=== PATIENT | male | born 1960 | race Caucasian/White ===

== ENCOUNTER 2023-11-08 17:32 | Inpatient (IN) ==
--- NOTE | 2023-11-08 17:55 | Emergency Department Note ---
History of Present Illness General Chief complaint: Cardiac Assessment Stated complaint: HEART PALPATATIONS, HYPERTENSION, WEAKNESS IN ARMS Time Seen by Provider: 11/08/23 17:39 Source: patient, family ( who is at the bedside), RN notes reviewed and old records reviewed (08/30/22-outpatient visit for back pain) Mode of arrival: ambulatory Limitations: no limitations History of Present Illness Maximum Pain Intensity: 8 This patient 62-year-old male who comes in with heart palpitations that have been going on since yesterday or so. He says it feels like there is butterflies in his chest his arms were very weak bilaterally yesterday and he felt a little bit today 2 weeks that when he was lifting stuff at work he said in the last 1 to 2 months he has episodes where his arms feel very weak. No syncope or near syncope. no chest pain or shortness of breath . no blood or melena stool. no fever .no abdominal pain. no headache .no change in vision he has had some nausea with this yesterday but no vomiting. He has chronic leg pain. Home Medications Medication Instructions Recorded Confirmed Type aspirin 81 mg tablet,delayed 81 mg PO DAILY 08/30/22 11/08/23 History release atenolol 50 mg tablet 50 mg PO DAILY 08/30/22 11/08/23 History insulin glargine 100 unit/mL (3 50 unit subcut HS 08/30/22 11/08/23 History mL) subcutaneous pen (Lantus Solostar U-100 Insulin) duloxetine 30 mg capsule,delayed 30 mg PO DAILY 11/08/23 11/08/23 History release empagliflozin 25 mg tablet 25 mg PO DAILY 11/08/23 11/08/23 History (Jardiance) fenofibrate micronized 200 mg 200 mg PO DAILYBB 11/08/23 11/08/23 History capsule gabapentin 300 mg capsule 300 mg PO TID 11/08/23 11/08/23 History glipizide 10 mg tablet, extended 10 mg PO DAILYBB 11/08/23 11/08/23 History release 24 hr lisinopril 40 mg tablet 40 mg PO DAILY 11/08/23 11/08/23 History meloxicam 15 mg tablet 15 mg PO DAILY PRN Pain 11/08/23 11/08/23 History metformin 500 mg tablet,extended 500 mg PO DAILY 11/08/23 11/08/23 History release 24 hr Allergies Allergy/AdvReac Type Severity Reaction Status Date / Time semaglutide [From Ozempic] AdvReac Intermediate ABD Verified 11/08/23 17:50 PAIN/NAUSEA Past Med/Surg History Problem List (Updated 11/08/23 @ 22:19 by Naeem Sung MD) D-dimer, elevated (Acute) Frequent PVCs (Acute) Palpitations (Acute) Arrhythmia (Acute) Hypertensive urgency Prostate cancer (Acute 08/08/14) "Positive family history of prostate cancer Rising PSA pretreatment PSA 4.39 Status post ultrasound-guided biopsies 08/08/2014 revealing adenocarcinoma [place] 3+3, biopsy staged T2c Prostate volume 29.6 Prostate density 0.148" Social History Smoking Status: Current every day smoker Tobacco Type: Smokeless Tobacco (Dip or Chew) Feels Safe at Home: Yes Immunizations: Past medical he he is a diabetic and his A1c was 10.5 last he tells Review of Systems A total of 10 systems reviewed and were otherwise negative Physical Exam Vital Signs Vital Signs - 24 hr 11/08/23 17:34 11/08/23 17:45 11/08/23 17:56 Temperature 36.9 C Temperature Source Temporal Artery Scan Pulse Rate 71 74 67 Pulse Rate from SpO2 Sensor Pulse Rhythm Regular Pulse Strength Normal Respiratory Rate 20 18 Respiratory Effort / Characteristics Non-Labored Spontaneous Respiratory Depth Normal Blood Pressure 170/90 H Blood Pressure Mean 116 Pulse Oximetry 95 Oxygen Delivery Method Room Air Sepsis Recent Fever Within 48 Hours No Sepsis New/Unexplained Change in Mental Status N/A Sepsis Action Taken by Nursing No Action Required 11/08/23 18:09 11/08/23 18:30 11/08/23 18:30 Temperature Temperature Source Pulse Rate 65 Pulse Rate from SpO2 Sensor Pulse Rhythm Pulse Strength Respiratory Rate 16 Respiratory Effort / Characteristics Respiratory Depth Blood Pressure 143/82 H 143/82 H Blood Pressure Mean 120 120 Pulse Oximetry Oxygen Delivery Method Sepsis Recent Fever Within 48 Hours Sepsis New/Unexplained Change in Mental Status Sepsis Action Taken by Nursing 11/08/23 18:30 11/08/23 18:30 11/08/23 18:33 Temperature Temperature Source Pulse Rate 65 Pulse Rate from SpO2 Sensor Pulse Rhythm Pulse Strength Respiratory Rate 16 Respiratory Effort / Characteristics Respiratory Depth Blood Pressure 143/82 H 143/82 H Blood Pressure Mean 120 120 Pulse Oximetry Oxygen Delivery Method Sepsis Recent Fever Within 48 Hours Sepsis New/Unexplained Change in Mental Status Sepsis Action Taken by Nursing 11/08/23 19:03 11/08/23 19:33 11/08/23 20:00 Temperature Temperature Source Pulse Rate 57 L 74 Pulse Rate from SpO2 Sensor 85 72 Pulse Rhythm Pulse Strength Respiratory Rate 25 H 25 H Respiratory Effort / Characteristics Respiratory Depth Blood Pressure Blood Pressure Mean Pulse Oximetry 96 96 Oxygen Delivery Method Sepsis Recent Fever Within 48 Hours Sepsis New/Unexplained Change in Mental Status Sepsis Action Taken by Nursing 11/08/23 20:21 11/08/23 20:25 11/08/23 20:25 Temperature Temperature Source Pulse Rate 78 Pulse Rate from SpO2 Sensor 79 Pulse Rhythm Pulse Strength Respiratory Rate 28 H Respiratory Effort / Characteristics Respiratory Depth Blood Pressure 163/95 H 163/95 H Blood Pressure Mean 138 138 Pulse Oximetry 95 Oxygen Delivery Method Sepsis Recent Fever Within 48 Hours Sepsis New/Unexplained Change in Mental Status Sepsis Action Taken by Nursing 11/08/23 22:12 Temperature Temperature Source Pulse Rate 77 Pulse Rate from SpO2 Sensor Pulse Rhythm Pulse Strength Respiratory Rate Respiratory Effort / Characteristics Respiratory Depth Blood Pressure Blood Pressure Mean Pulse Oximetry Oxygen Delivery Method Sepsis Recent Fever Within 48 Hours Sepsis New/Unexplained Change in Mental Status Sepsis Action Taken by Nursing General: Well developed well nourished middle-age male who appears in no acute distress, breathing comfortably on room air. Normal speech HEENT: Normal cephalic atraumatic. Pupils are equal round and reactive to light. Extraocular movements are intact. Oropharynx is pink with moist mucous membranes. No swelling of the mouth lips or tongue. Neck: Supple with a midline trachea. No meningeal signs or stiffness, no JVD or bruits. No Stridor. Chest: Clear to auscultation bilaterally. No wheezes or rhonchi. No increased work of breathing. Heart: Regular rate and rhythm with occasional PVCs but without murmurs or gallops. Abdomen: Soft nontender, nondistended without rebound guarding or rigidity. Extremities: No cyanosis clubbing or edema. No calf tenderness or assymetry Spine/Back. Non tender to palpation. No CVA tenderness Skin: Good turgor without rashes. Neurologic exam: Cranial nerves two through 12 are intact. Motor and sensation are intact and symmetrical throughout. Course Administered Medications Discontinued Medications Sodium Chloride (Nss) 1,000 mls @ 999 mls/hr IV .Q1H1M ONE Stop: 11/08/23 18:50 Last Infusion: 11/08/23 20:23 Dose: Infused Documented By: Admin: 11/08/23 18:30 Dose: 999 mls/hr Documented By: INDRA Ioversol (Optiray 320 125ml) 117 ml IV ONCE ONE Stop: 11/08/23 19:27 Last Admin: 11/08/23 19:27 Dose: 117 ml Documented By: JAKY Medical Decision Making Differential Diagnosis Acute coronary syndrome, arrhythmia, electrolyte or metabolic abnormality, PVCs, pulmonary disease/PE, thyroid disease, dehydration Medical Records Attestation: I reviewed the patient's medical records. Home Medications Current Medication List: was personally reviewed by me Laboratory Data Attestation: I reviewed the patient's lab results. 11/08/23 17:49 11/08/23 17:49 Lab Results 11/08/23 11/08/23 11/08/23 Range/Units 17:49 17:51 21:10 WBC 9.30 (4.8-10.8) K/ul RBC 6.10 (4.70-6.10) M/uL Hgb 18.1 H (14.0-18.0) g/dl POC Hgb 18.4 H (14.0-18.0) g/dl Hct 52.7 H (42.0-52.0) % POC Hct 54 H (42-52) % MCV 86.4 (80.0-100.0) fL MCH 29.7 (25.0-34.0) pg MCHC 34.3 (32.0-36.0) g/dL RDW Std Deviation 40.0 (36.4-46.3) fL RDW Coeff of Danna 12.9 (11.5-14.5) % Plt Count 262 (130-400) K/uL MPV 9.9 (9.4-12.4) fL Immature Gran % (Auto) 0.6 % Neut % (Auto) 66.1 % Lymph % (Auto) 23.3 % Waldo % (Auto) 6.2 % Eos % (Auto) 3.0 % Baso % (Auto) 0.8 % Neut # (Auto) 6.14 (1.40-6.50) K/uL Lymph # (Auto) 2.17 (1.20-3.40) K/uL Waldo # (Auto) 0.58 (0.11-0.59) K/uL Eos # (Auto) 0.28 (0.00-0.50) K/uL Baso # (Auto) 0.07 (0.00-0.20) K/uL Immature Gran # (Auto) 0.06 (0.01-0.20) K/uL PT 10.3 (9.0-12.0) Seconds INR 0.9 (0.9-1.1) APTT 27 (21-31) Seconds PTT Ratio 1.0 D-Dimer 590 H* (0-500) ug/L FEU POC Sodium 140 (135-144) mmol/L Sodium 138 (136-145) mmol/L POC Potassium 4.1 (3.3-5.0) mmol/L Potassium 4.0 (3.5-5.1) mmol/L POC Chloride 106 (101-112) mmol/L Chloride 105 (98-107) mmol/L Carbon Dioxide 23 (21-32) mmol/L POC Total CO2 23 L (24-31) mmol/L Anion Gap 10 (3-11) POC Anion Gap 16.0 (16-25) mmol/L POC BUN 23 H (7-18) mg/dl BUN 23 (6-23) mg/dl Creatinine 1.04 (0.6-1.4) mg/dl POC Creatinine 1.1 (0.6-1.3) mg/dl Est Cr Clr Drug Dosing 72.2 ml/min Est GFR ( Amer) 89.4 ml/min Est GFR (Non-Af Amer) 77.1 ml/min BUN/Creatinine Ratio 22.1 H (10-20) Glucose 131 H (70-99(Fasting)) mg/dl POC Glucose (other) 131 H (70-99) mg/dl Calcium 10.3 (8.6-10.3) mg/dl POC Ioniz Calcium Gurmeet 1.19 (1.12-1.32) mmol/l Magnesium 2.3 (1.7-2.4) mg/dl Total Bilirubin 0.5 (0.2-1.0) mg/dl AST 19 (13-39) U/L ALT 17 (7-52) U/L Alkaline Phosphatase 42 (34-104) U/L Troponin I High Sens 6.5 4.8 (0-20) pg/ml Total Protein 7.8 (6.0-8.3) gm/dl Albumin 4.9 (3.4-5.0) gm/dl Globulin 2.9 (2.5-4.0) gm/dl Albumin/Globulin Ratio 1.7 (0.9-2) Lipase 106 H (11-82) U/L TSH 1.542 (0.300-4.500) uIu/ml Lyme Disease Screen Negative (Negative) Imaging Data Attestation: I personally reviewed and interpreted this imaging study as follows: My Impression: Chest x-rayno acute infiltrate, failure, pneumothorax seen Radiologist's Impression: Chest X-Ray 11/08/23 17:50 SINGLE VIEW CHEST CLINICAL HISTORY: Atypical chest pain FINDINGS: An AP, portable, upright chest radiograph is compared to study dated 09/30/2014. The heart is mildly enlarged noting atherosclerotic calcification of the thoracic aorta. The pulmonary vasculature is noncongested. Nonspecific interstitial thickening is likely chronic. The lungs and pleural spaces are clear. No pneumothorax is seen. The skeletal structures appear osteopenic. The bony thorax is grossly intact. IMPRESSION: No acute cardiopulmonary abnormality is identified. ACT 112: Negative or not required by law. Electronically signed by: Irving Eid M.D. 11/08/2023 6:40 PM Chest CTA 11/08/23 18:54 Exam(s): CTA CHEST IV Amt: 117 ml optiray 320 EXAM: CT Angiography Chest With Intravenous Contrast CLINICAL HISTORY: Reason for exam: PE. TECHNIQUE: Axial computed tomographic angiography images of the chest with intravenous contrast. CTDI is 32 mGy and DLP is 723.58 mGy-cm. Automated exposure control was utilized for the study. A dose lowering technique was utilized adhering to the principles of ALARA. MIP reconstructed images were created and reviewed. COMPARISON: No relevant prior studies available. FINDINGS: Pulmonary arteries: Unremarkable. No pulmonary embolism. Aorta: No acute findings. No thoracic aortic aneurysm. Lungs: Unremarkable. No mass. No consolidation. Pleural space: Unremarkable. No significant effusion. No pneumothorax. Heart: Unremarkable. No cardiomegaly. No significant pericardial effusion. No evidence of RV dysfunction. Bones/joints: No acute fracture. No dislocation. Soft tissues: Unremarkable. Lymph nodes: Unremarkable. No enlarged lymph nodes. IMPRESSION: Normal chest CTA. No pulmonary embolism. Electronically signed by: Jordan Johnson MD 11/08/23 20:28 PM ECG Data Attestation: I personally reviewed and interpreted this ECG as follows: Indication: + chest pain Rate (beats per minute): 65 Rhythm: + normal sinus ECG Intervals/blocks: + Normal QRS, + Normal QT and + Normal [place] ECG [place]: + Normal ECG ST segments: + Normal ST segments ECG Findings: no PACs or no PVCs Comparison ECG Date: from (10/15/17) Change: no significant change MDM Narrative This patient comes in as described above he has been having palpitations. He looks well at present he is in no chest pain. He was placed on a laboratory monitor and room B8. IV access was established and he was hydrated with IV normal saline his EKG shows no ischemic changes or ectopy. Multiple blood testing was obtained. He remained stable his electrolytes. Troponin was negative. TSH was normal. Lyme was negative. Chest x-ray shows no acute infiltrate, failure, pneumothorax. His D-dimer was mildly elevated in light of this I did do a chest CT angiography. There is no evidence of PE. I did review the patient's monitor strips and he did have an episode where he has had a change in the morphology of his rhythm. He does have fairly frequent PVCs and he had an episode where he had a slow wide complex for 6 beats whether it was consecutive PVCs or junctional escape rhythm is hard to tell there is some artifact. I do think he needs to be admitted based on this for further treatment and evaluation and cardiac monitoring. I have discussed case in consultation with Dr. Morrissey who who will see the patient in the ER for these measures. Continuous cardiac monitoring: Order was placed in the EMR for continuous cardiac monitoring: Upon my evaluation patient noted to be normal sinus rhythm with occasional PVCs. Impression & Plan Arrhythmia, Palpitations, Frequent PVCs, D-dimer, elevated Discharge Plan Visit Data Chief Complaint: Cardiac Assessment Stated Complaint: HEART PALPATATIONS, HYPERTENSION, WEAKNESS IN ARMS ED Provider: Naeem Sung Discharge Problem: Arrhythmia, Palpitations, Frequent PVCs, D-dimer, elevated Forms Stand Alone Forms: My [facility] Prescriptions Prescriptions: No Action atenolol 50 mg tablet 50 mg PO DAILY insulin glargine [Lantus Solostar U-100 Insulin] 100 unit/mL (3 mL) insulin pen 50 unit subcut HS aspirin 81 mg tablet,delayed release (DR/EC) 81 mg PO DAILY glipizide 10 mg tablet extended release 24hr 10 mg PO DAILYBB meloxicam 15 mg tablet 15 mg PO DAILY PRN (Reason: Pain) fenofibrate micronized 200 mg capsule 200 mg PO DAILYBB gabapentin 300 mg capsule 300 mg PO TID lisinopril 40 mg tablet 40 mg PO DAILY metformin 500 mg tablet extended release 24 hr 500 mg PO DAILY duloxetine 30 mg capsule,delayed release(DR/EC) 30 mg PO DAILY Rx Instructions: DO NOT CUT, CRUSH, OR CHEW Jardiance 25 mg tablet 25 mg PO DAILY Referrals Referrals: Katherine Love DO [Primary Care Provider] - Discharge Problem: Arrhythmia Qualifiers: Arrhythmia type: unspecified cardiac arrhythmia Qualified Code(s): I49.9 - Cardiac arrhythmia, unspecified
[2023-11-08 18:02] LABS: Basophils # (auto) 0.07 K/uL (0.00-0.20); Basophils % (auto) 0.8 %; Eosinophils # (auto) 0.28 K/uL (0.00-0.50); Hematocrit (blood only) 52.7 % (42.0-52.0); Hemoglobin 18.1 g/dl (14.0-18.0); Immature Granulocytes # (auto) 0.06 K/uL (0.01-0.20); Immature Granulocytes % (auto) 0.6 %; Lymphocytes # (auto) 2.17 K/uL (1.20-3.40); Lymphocytes % (auto) 23.3 %; Mean Corpuscular Hemoglobin 29.7 pg (25.0-34.0); Mean Corpuscular Hgb Conc 34.3 g/dL (32.0-36.0); Mean Corpuscular Volume 86.4 fL (80.0-100.0); Mean Platelet Volume 9.9 fL (9.4-12.4); Monocytes # (auto) 0.58 K/uL (0.11-0.59); Monocytes % (auto) 6.2 %; Neutrophils # (auto) 6.14 K/uL (1.40-6.50); Neutrophils % (auto) 66.1 %; Platelet Count 262 K/uL (130-400); RDW Coefficient of Variation 12.9 % (11.5-14.5)
[2023-11-08 18:04] LABS: iSTAT Creatinine 1.1 mg/dl (0.6-1.3); iSTAT Hemoglobin 18.4 g/dl (14.0-18.0); iSTAT Ionized Calcium 1.19 mmol/l (1.12-1.32); iSTAT Potassium 4.1 mmol/L (3.3-5.0)
[2023-11-08 18:24] LABS: Albumin Globulin Ratio 1.7 (0.9-2); Albumin Level 4.9 gm/dl (3.4-5.0); BUN Creatinine Ratio 22.1 (10-20); Bilirubin,Total 0.5 mg/dl (0.2-1.0); Calcium 10.3 mg/dl (8.6-10.3); Creatinine Clr Calc Pharmacy 72.2 ml/min; Est GFR (African American) 89.4 ml/min; Est GFR (Non-African American) 77.1 ml/min; Globulin 2.9 gm/dl (2.5-4.0); Magnesium 2.3 mg/dl (1.7-2.4); Total Protein 7.8 gm/dl (6.0-8.3)
[2023-11-08 18:30] LABS: Troponin I High Sensitivity 6.5 pg/ml (0-20)
[2023-11-08] MEDS: SODIUM CHLORIDE 0.9% 1,000 ML IV ONE (18:30)
[2023-11-08 18:33] LABS: INR 0.9 (0.9-1.1); Partial Thromboplastin Time 27 Seconds (21-31); Prothrombin Time 10.3 Seconds (9.0-12.0)
[2023-11-08 18:39] LABS: Thyroid Stimulating Hormone 1.542 uIu/ml (0.300-4.500)
--- NOTE | 2023-11-08 18:41 | XRay Report ---
SINGLE VIEW CHEST CLINICAL HISTORY: Atypical chest pain FINDINGS: An AP, portable, upright chest radiograph is compared to study dated 09/30/2014. The heart i s mildly enlarged noting atherosclerotic calcification of the thoracic aorta. The pulmonary vasculatu re is noncongested. Nonspecific interstitial thickening is likely chronic. The lungs and pleural spac es are clear. No pneumothorax is seen. The skeletal structures appear osteopenic. The bony thorax is grossly intact. IMPRESSION: No acute cardiopulmonary abnormality is identified. ACT 112: Negative or not required by law. Electronically signed by: Irving Eid M.D. 11/08/2023 6:40 PM
[2023-11-08 18:48] LABS: D Dimer 590 ug/L FEU (0-500)
[2023-11-08] MEDS: OPTIRAY 320 125ml IV ONE (19:27)
--- NOTE | 2023-11-08 20:29 | CT Scan Report ---
Exam(s): CTA CHEST IV Amt: 117 ml optiray 320 EXAM: CT Angiography Chest With Intravenous Contrast CLINICAL HISTORY: Reason for exam: PE. TECHNIQUE: Axial computed tomographic angiography images of the chest with intravenous contrast. CTDI is 32 mGy and DLP is 723.58 mGy-cm. Automated exposure control was utilized for the study. A dose lowering technique was utilized adhering to the principles of ALARA. MIP reconstructed images were created and reviewed. COMPARISON: No relevant prior studies available. FINDINGS: Pulmonary arteries: Unremarkable. No pulmonary embolism. Aorta: No acute findings. No thoracic aortic aneurysm. Lungs: Unremarkable. No mass. No consolidation. Pleural space: Unremarkable. No significant effusion. No pneumothorax. Heart: Unremarkable. No cardiomegaly. No significant pericardial effusion. No evidence of RV dysfunction. Bones/joints: No acute fracture. No dislocation. Soft tissues: Unremarkable. Lymph nodes: Unremarkable. No enlarged lymph nodes. IMPRESSION: Normal chest CTA. No pulmonary embolism. Electronically signed by: Jordan Johnson MD 11/08/23 20:28 PM
--- NOTE | 2023-11-08 22:08 | History & Physical Report ---
Date of Service November 08, 2023 Assessment & Plan (1) Hypertensive urgency: Plan: 62-year-old male with past medical history significant for uncontrolled diabetes, diabetic retinopathy, hyperlipidemia, hypertension, gastroparesis, history of tobacco use, depression with anxious mood, history of prostate cancer presents with palpitations and hypertensive urgency. Since yesterday he noticed having palpitations and also his blood pressure is running high. His blood pressure was in 170s. Denies headache. No dizziness. Vision is okay. No sore throat or cough. No fevers. No chest pain or shortness of breath. Had some nausea yesterday. No abdominal pain. Normal bowel and bladder movements. Resting comfortably. Patient had a brief run of wide-complex rhythm in the ER. Hypertensive urgency Will continue home atenolol and lisinopril IV labetalol as needed Will monitor Palpitations Brief run of wide-complex rhythm in the ER Monitoring telemetry On atenolol Cardiology consulted Diabetes Hold metformin and Jardiance Reducing Lantus as patient is n.p.o. currently If started on diet will give him full dose Lantus 50 units at bedtime Sliding scale Will follow HbA1c levels Will follow blood sugars Hyperlipidemia Fenofibrate Depression with anxious mood Duloxetine History of prostate cancer Status post radical prostate removal in 2014 DVT prophylaxis SCDs Disposition Telemetry Full code. History of Present Illness Chief Complaint: Palpitations and hypertensive urgency Primary Care Provider: Katherine Love DO 62-year-old male with past medical history significant for uncontrolled diabetes, diabetic retinopathy, hyperlipidemia, hypertension, gastroparesis, history of tobacco use, depression with anxious mood, history of prostate cancer presents with palpitations and hypertensive urgency. Since yesterday he noticed having palpitations and also his blood pressure is running high. His blood pressure was in 170s. Denies headache. No dizziness. Vision is okay. No sore throat or cough. No fevers. No chest pain or shortness of breath. Had some nausea yesterday. No abdominal pain. Normal bowel and bladder movements. Resting comfortably. Patient had a brief run of wide-complex rhythm in the ER. Past medical history. As mentioned above Past surgical history. Colonoscopy. EGD. Radical prostate removal. Social history. . Quit smoking in 2007. Smoked 1 pack a day for 35 years. Alcohol use. Smokes marijuana as per [employer]. Family history. Father had alcoholism. Father had prostate cancer. Mother had lung cancer. Diabetes. Heart disorder. Thyroid disorder. Brother had Crohn's disease. Brother had diabetes. Allergies Allergy/AdvReac Type Severity Reaction Status Date / Time semaglutide [From Ozempic] AdvReac Intermediate ABD Verified 11/08/23 17:50 PAIN/NAUSEA Home Medications Medication Instructions Recorded Confirmed Type aspirin 81 mg tablet,delayed 81 mg PO DAILY 08/30/22 11/08/23 History release atenolol 50 mg tablet 50 mg PO DAILY 08/30/22 11/08/23 History insulin glargine 100 unit/mL (3 50 unit subcut HS 08/30/22 11/08/23 History mL) subcutaneous pen (Lantus Solostar U-100 Insulin) duloxetine 30 mg capsule,delayed 30 mg PO DAILY 11/08/23 11/08/23 History release empagliflozin 25 mg tablet 25 mg PO DAILY 11/08/23 11/08/23 History (Jardiance) fenofibrate micronized 200 mg 200 mg PO DAILYBB 11/08/23 11/08/23 History capsule gabapentin 300 mg capsule 300 mg PO TID 11/08/23 11/08/23 History glipizide 10 mg tablet, extended 10 mg PO DAILYBB 11/08/23 11/08/23 History release 24 hr lisinopril 40 mg tablet 40 mg PO DAILY 11/08/23 11/08/23 History meloxicam 15 mg tablet 15 mg PO DAILY PRN Pain 11/08/23 11/08/23 History metformin 500 mg tablet,extended 500 mg PO DAILY 11/08/23 11/08/23 History release 24 hr Past Med/Surg History Problem List (Updated 11/08/23 @ 22:19 by Naeem Sung MD) D-dimer, elevated (Acute) Frequent PVCs (Acute) Palpitations (Acute) Arrhythmia (Acute) Hypertensive urgency Prostate cancer (Acute 08/08/14) "Positive family history of prostate cancer Rising PSA pretreatment PSA 4.39 Status post ultrasound-guided biopsies 08/08/2014 revealing adenocarcinoma [place] 3+3, biopsy staged T2c Prostate volume 29.6 Prostate density 0.148" Social History Smoking Status: Current every day smoker Tobacco Type: Cigarettes Cigarettes Per Day: 5; Second Hand Exposure: Yes; Do You Dip or Chew Tobacco: Yes; Tobacco Cessation Education Requested by Patient: No Hx Alcohol Use: No Hx Substance Use: Yes Last Used Substance: Days (ago) Last Used Substance Other:: 5 days Substance Use Type Other:: every 3 days Preferred Language: Afghan Communication Ability: Effective Student Finance Advisor Required: No Beliefs That Will Affect Care: None Current Living Situation: Spouse Other Information That Helps Us Care for You: No Feels Safe at Home: Yes Safety Concerns: Feels Safe At This Time Assistive Devices: Glasses Review of Systems Review of Systems: All systems reviewed & are unremarkable except as noted in HPI & below Physical Exam Physical Exam: General- Not in distress Head- atraumatic Eyes- PERRL. ENT- oropharynx clear Neck- supple, no JVD. Lungs- clear to auscultation no wheezing or crackles Heart- regular rhythm; no murmur, no gallop. Abdomen- normal bowel sounds, soft, nontender, no distension. Extremities- no pretibial edema, no erythema seen Neuro- alert, oriented PERRL, o facial palsy; no dysarthria; moves extremities Results & Data Results & Data Vital Signs (Past 12 Hours) Vital Signs Temp Pulse Resp BP Pulse Ox O2 Del Method 11/08/23 20:25 163/95 H 11/08/23 20:25 163/95 H 11/08/23 20:21 78 28 H 95 11/08/23 20:00 74 25 H 96 11/08/23 19:33 96 11/08/23 19:03 57 L 25 H 11/08/23 18:33 65 16 11/08/23 18:30 143/82 H 11/08/23 18:30 143/82 H 11/08/23 18:30 143/82 H 11/08/23 18:30 143/82 H 11/08/23 18:09 65 16 11/08/23 17:56 67 11/08/23 17:45 74 18 11/08/23 17:34 36.9 C 71 20 170/90 H 95 Room Air Diagnostic Findings Laboratory Results WBC 9.30 K/ul (4.8-10.8) 11/08/23 17:49 RBC 6.10 M/uL (4.70-6.10) 11/08/23 17:49 Hgb 18.1 g/dl (14.0-18.0) H 11/08/23 17:49 POC Hgb 18.4 g/dl (14.0-18.0) H 11/08/23 17:51 Hct 52.7 % (42.0-52.0) H 11/08/23 17:49 POC Hct 54 % (42-52) H 11/08/23 17:51 MCV 86.4 fL (80.0-100.0) 11/08/23 17:49 MCH 29.7 pg (25.0-34.0) 11/08/23 17:49 MCHC 34.3 g/dL (32.0-36.0) 11/08/23 17:49 RDW Std Deviation 40.0 fL (36.4-46.3) 11/08/23 17:49 RDW Coeff of Danna 12.9 % (11.5-14.5) 11/08/23 17:49 Plt Count 262 K/uL (130-400) 11/08/23 17:49 MPV 9.9 fL (9.4-12.4) 11/08/23 17:49 Immature Gran % (Auto) 0.6 % 11/08/23 17:49 Neut % (Auto) 66.1 % 11/08/23 17:49 Lymph % (Auto) 23.3 % 11/08/23 17:49 [place] % (Auto) 6.2 % 11/08/23 17:49 Eos % (Auto) 3.0 % 11/08/23 17:49 Baso % (Auto) 0.8 % 11/08/23 17:49 Neut # (Auto) 6.14 K/uL (1.40-6.50) 11/08/23 17:49 Lymph # (Auto) 2.17 K/uL (1.20-3.40) 11/08/23 17:49 [place] # (Auto) 0.58 K/uL (0.11-0.59) 11/08/23 17:49 Eos # (Auto) 0.28 K/uL (0.00-0.50) 11/08/23 17:49 Baso # (Auto) 0.07 K/uL (0.00-0.20) 11/08/23 17:49 Immature Gran # (Auto) 0.06 K/uL (0.01-0.20) 11/08/23 17:49 PT 10.3 Seconds (9.0-12.0) 11/08/23 17:49 INR 0.9 (0.9-1.1) 11/08/23 17:49 APTT 27 Seconds (21-31) 11/08/23 17:49 PTT Ratio 1.0 11/08/23 17:49 D-Dimer 590 ug/L FEU (0-500) H* 11/08/23 17:49 POC Sodium 140 mmol/L (135-144) 11/08/23 17:51 Sodium 138 mmol/L (136-145) 11/08/23 17:49 POC Potassium 4.1 mmol/L (3.3-5.0) 11/08/23 17:51 Potassium 4.0 mmol/L (3.5-5.1) 11/08/23 17:49 POC Chloride 106 mmol/L (101-112) 11/08/23 17:51 Chloride 105 mmol/L (98-107) 11/08/23 17:49 Carbon Dioxide 23 mmol/L (21-32) 11/08/23 17:49 POC Total CO2 23 mmol/L (24-31) L 11/08/23 17:51 Anion Gap 10 (3-11) 11/08/23 17:49 POC Anion Gap 16.0 mmol/L (16-25) 11/08/23 17:51 POC BUN 23 mg/dl (7-18) H 11/08/23 17:51 BUN 23 mg/dl (6-23) 11/08/23 17:49 Creatinine 1.04 mg/dl (0.6-1.4) 11/08/23 17:49 POC Creatinine 1.1 mg/dl (0.6-1.3) 11/08/23 17:51 Est Cr Clr Drug Dosing 72.2 ml/min 11/08/23 17:49 Est GFR ( Amer) 89.4 ml/min 11/08/23 17:49 Est GFR (Non-Af Amer) 77.1 ml/min 11/08/23 17:49 BUN/Creatinine Ratio 22.1 (10-20) H 11/08/23 17:49 Glucose 131 mg/dl (70-99(Fasting)) H 11/08/23 17:49 POC Glucose (other) 131 mg/dl (70-99) H 11/08/23 17:51 Calcium 10.3 mg/dl (8.6-10.3) 11/08/23 17:49 POC Ioniz Calcium [place] 1.19 mmol/l (1.12-1.32) 11/08/23 17:51 Magnesium 2.3 mg/dl (1.7-2.4) 11/08/23 17:49 Total Bilirubin 0.5 mg/dl (0.2-1.0) 11/08/23 17:49 AST 19 U/L (13-39) 11/08/23 17:49 ALT 17 U/L (7-52) 11/08/23 17:49 Alkaline Phosphatase 42 U/L (34-104) 11/08/23 17:49 Troponin I High Sens 4.8 pg/ml (0-20) 11/08/23 21:10 Total Protein 7.8 gm/dl (6.0-8.3) 11/08/23 17:49 Albumin 4.9 gm/dl (3.4-5.0) 11/08/23 17:49 Globulin 2.9 gm/dl (2.5-4.0) 11/08/23 17:49 Albumin/Globulin Ratio 1.7 (0.9-2) 11/08/23 17:49 Lipase 106 U/L (11-82) H 11/08/23 17:49 TSH 1.542 uIu/ml (0.300-4.500) 11/08/23 17:49 Lyme Disease Screen Negative (Negative) 11/08/23 17:49 Impressions Chest X-Ray 11/08/23 17:50 SINGLE VIEW CHEST CLINICAL HISTORY: Atypical chest pain FINDINGS: An AP, portable, upright chest radiograph is compared to study dated 09/30/2014. The heart is mildly enlarged noting atherosclerotic calcification of the thoracic aorta. The pulmonary vasculature is noncongested. Nonspecific interstitial thickening is likely chronic. The lungs and pleural spaces are clear. No pneumothorax is seen. The skeletal structures appear osteopenic. The bony thorax is grossly intact. IMPRESSION: No acute cardiopulmonary abnormality is identified. ACT 112: Negative or not required by law. Electronically signed by: Irving Eid M.D. 11/08/2023 6:40 PM Chest CTA 11/08/23 18:54 Exam(s): CTA CHEST IV Amt: 117 ml optiray 320 EXAM: CT Angiography Chest With Intravenous Contrast CLINICAL HISTORY: Reason for exam: PE. TECHNIQUE: Axial computed tomographic angiography images of the chest with intravenous contrast. CTDI is 32 mGy and DLP is 723.58 mGy-cm. Automated exposure control was utilized for the study. A dose lowering technique was utilized adhering to the principles of ALARA. MIP reconstructed images were created and reviewed. COMPARISON: No relevant prior studies available. FINDINGS: Pulmonary arteries: Unremarkable. No pulmonary embolism. Aorta: No acute findings. No thoracic aortic aneurysm. Lungs: Unremarkable. No mass. No consolidation. Pleural space: Unremarkable. No significant effusion. No pneumothorax. Heart: Unremarkable. No cardiomegaly. No significant pericardial effusion. No evidence of RV dysfunction. Bones/joints: No acute fracture. No dislocation. Soft tissues: Unremarkable. Lymph nodes: Unremarkable. No enlarged lymph nodes. IMPRESSION: Normal chest CTA. No pulmonary embolism. Electronically signed by: Jordan Johnson MD 11/08/23 20:28 PM ECG Additional Comments: ECG.. Normal sinus rhythm with a rate of 65. Q waves in inferior leads Code Status & VTE Plan VTE Prophylaxis Plan VTE Prophylaxis will be ordered: Yes
[2023-11-08] MEDS ORDERED: POLYETHYLENE (MIRALAX) 17 GM PACK PO PRN (23:40)
[2023-11-08] MEDS ORDERED: ACETAMINOPHEN 325 MG TAB PO PRN (23:40)
[2023-11-08] MEDS ORDERED: GLUCOSE 40% GEL 15 GM TUBE PO PRN (23:40)
[2023-11-08] MEDS ORDERED: LABETALOL HCL IV 5 MG/ML 20ML IV PRN (23:40)
[2023-11-08] MEDS ORDERED: GLUCAGON FOR INJ 1 MG VIAL SQ PRN (23:40)
[2023-11-08] MEDS ORDERED: DEXTROSE 50% 50 ML SYRINGE IV PRN (23:40)
[2023-11-08] MEDS ORDERED: GLUCOSE 10 TAB/TUBE PO PRN (23:40)
[2023-11-08] MEDS ORDERED: CARBOHYDRATES FOR HYPOGLYCEMIA PO PRN (23:40)
[2023-11-08] MEDS ORDERED: NITROGLYCERIN SL 0.4 MG/TAB TAB SL PRN (23:40)
[2023-11-09] MEDS: SODIUM CHLORIDE 0.9% 1,000 ML IV SCH (00:07)
[2023-11-09] MEDS: LANTUS PER UNIT CHARGE SQ SCH (00:36)
[2023-11-09] MEDS: INSULIN ASPART PER UNIT CHARGE SC SCH ×2 (00:48→12:14)
--- OUTSIDE RECORDS SUMMARY | 2023-11-09 01:12 | External Medical Summary | Summary of Care ---
Author Name Unknown Organization [facility] Address [address] [place] [address] Phone [phone] Care Team Providers Care Lift Operator Name Role Phone William Allred DO Primary Care Provider Reason for Visit * Reason Onset Date Comments Medication Refill 08/22/2023 Encounter Details Date Type Department Care Team (Late st Contact Info) Description 08/22/2023 Refill Family Medicine [address] [phone] William Allred [address] [place] [address] Dyslipidemia, goal LDL below 100 Allergies Active Allergy Reactions Criticality Noted Date Comments Semaglutide(0.25 Or 0.5mg-Dos) 05/12 abd pain, nausea documented as of this encounter (statuses as of 08/22/2023) Medications Medication Sig Dispensed Refills Start Date End Date Status ASPIRIN 81 MG PO TABSIndications:HTN , goal to be determined one tab by mouth daily 34 5 10/08/2004 Active EASY COMFORT LANCETS MISC 03/13/2016 Active Blood Glucose Monitoring Suppl (ONETOUCH ULTRA MINI) W/DEVICE KIT 03/13/2016 Active ONETOUCH ULTRA BLUE STRPIndications:Typ e 2 diabetes mellitus with hemoglobin A1c goal of less than 7.0% ([facility]) test blood sugar 6 times daily 200 Strip 5 03/28/2017 Active UltiCare Short Pen [place] 31G X 8 MM (Insulin Pen Needle)Indications: Uncontrolled type 2 diabetes mellitus with hyperglycemia (HCC) Use with insulin daily up to 5 times daily E11.9 500 Each 1 10/19/2022 Active DULoxetine HCl 30 MG Oral Capsule Delayed Release Particles (Cymbalta)Indicatio ns:Adjustment disorder with anxious mood Take 1 Capsule by mouth in the morning. Do not cut, crush or chew. 90 Capsule 2 10/21/2022 Active Empagliflozin 25 MG Oral Tablet (Jardiance)Indicati ons:Uncontrolled type 2 diabetes mellitus with hyperglycemia (HCC) Take 1 Tablet by mouth in the morning. 90 Tablet 1 10/21/2022 Active glipiZIDE ER 10 MG Oral Tablet Extended Release 24 Hour (glipiZIDE XL)Indications:Unco ntrolled type 2 diabetes mellitus with hyperglycemia (HCC) Take 1 Tablet by mouth in the morning. 30 minutes before a meal.. 90 Tablet 1 01/04/2023 Active metFORMIN HCl ER 500 MG Oral Tablet Extended Release 24 Hour (Glucophage XR) Take 1 Tablet by mouth in the morning. 90 Tablet 06/30/2023 Active Meloxicam 15 MG Oral Tablet (Mobic)Indications: Rib pain on right side take 1 tablet in the morning for pain. 90 Tablet 06/30/2023 Active Fenofibrate Micronized 200 MG Oral CapsuleIndications: Dyslipidemia, goal LDL below 100 TAKE ONE CAPSULE BY MOUTH EVERY DAY before breakfast 90 Capsule 1 08/22/2023 Active Fenofibrate Micronized 200 MG Oral CapsuleIndications: Dyslipidemia, goal LDL below 100 TAKE ONE CAPSULE BY MOUTH EVERY DAY before breakfast 90 Capsule 1 10/19/2022 Discontinue d(Refill) documented as of this encounter (statuses as of 08/22/2023) Active Problems Problem Noted Date Diagnosed Date Mild nonproliferative diabet ic retinopathy of both eyes without macular edema associated with type 2 diabetes mellitus 05/25/2021 Uncontrolled type 2 diabetes mellitus with hyper glycemia 04/06/2021 Gastroparesis 06/18/2020 Overview: Diabetes vs Ozempic. History of prostate cancer 02/08/2018 Erectile dysfunction following radical prostatec jovita 04/17/2015 Adjustment disorder with anxious mood 10/22/2012 Vitamin D deficiency 09/06/2012 HTN, goal below 140/90 11/21/2011 Overview: Per HTN Protocol #27. Hyperlipidemia with target LDL less than 70 11/2008 Overview: Per Lipid Taxonomy. CHOL 346, HDL 36, TRIG 1554 History of tobacco use documented as of this encounter (statuses as of 08/22/2023) Resolved Problems Problem Noted Date Diagnosed Date Resolved Date Asymptomatic stenosis of right carotid artery 04/08/1908/02/2023 Overview: 50-69% 04/2020 Prostate cancer 12/26/2018 12/26/2018 Night sweats 12/26/2018 04/29/2020 Severe obesity with body mas s index (BMI) of 35.0 to 39.9 with serious comorbidity 06/29/2009 Overview: Per Obesity Taxonomy ICD-10 update of inactive diagnosis HTN, GOAL BELOW 130/80 04/29/200911/23 Overview: Modified per HTN Taxonomy. HTN, GOAL BELOW 140/90 02/06/200904/29 Overview: Modified per HTN Taxonomy. Type 2 diabetes mellitus wit h hemoglobin A1c goal of less than 7.0% 01/15/2009 04/06/2021 Overview: Modified per Diabetes protocol #14. glucose 367, hgba1c 10.3 ICD-10 update of inactive term Other seborrheic keratosis 05/02/2008 0 04/17/2015 Overview: left shoulder DM type 2, not at goal 04/22/200801/15 Overview: Modified per Diabetes protocol #14. glucose 367, hgba1c 10.3 Mixed dyslipidemia 04/22/2008 12 9 Overview: Per Lipid Taxonomy. CHOL 346, HDL 36, TRIG 1554 Elevated C-reactive protein (CRP) 04/22/2008 08/19/2016 Overview: CRP 3.39 DM type 2 causing renal disease 04/22/2008 04/17/2015 Overview: microalbumin 303 Other abnormal glucose 10/29/200710/09 Overview: glucose 158 Major depressive disorder 02/11/2002 Overview: ICD-10 update of inactive term FAM HX-DIABETES MELLITUS 05/21/2001 HYPERTENSION NOS 04/21/2008 BENIGN HYPERTENSION 02/07/20 09 Overview: Modified per HTN Taxonomy. Obesity, BMI not known 06/29 Overview: Per Obesity Taxonomy documented as of this encounter (statuses as of 08/22/2023) Immunizations Name Administration Dates Next Due Hepatitis B, 20+ yrs 04/28/2014,11/25/2013,10/24 Pneumococcal Polysaccharide PPV23 (Pneumovax) 06/16/2008 Seasonal Influenza, Split, I IV3, With Preserve, Inj 03/07/2014,02/12/2013,02/24/2012,01/01 TDAP (age 10 and older)(Boostrix) 12/26/2018 TDAP (age 11 and older)(Adacel) 10/29/2007 Zoster Vaccine Recombinant (Shingrix) 09/01/2020 ,06/08/2020 documented as of this encounter Social History Tobacco Use Types Packs/Day Years Used Date Smoking Tobacco: Former Cigarettes 1 35 1 - 01/24/2008 Cigars Smokeless Tobacco: Current Snuff Comments:quit 01/14/07, now smoking cigars Alcohol Use Standard Drinks/Week Comments Yes 0 (1 standard drink = 0.6 oz pur e alcohol) AUDIT-C Answer Date Recorded Frequency of Alcohol Consumption Monthly or less 12/26/2018 Average Number of Drinks Not on file 019 Frequency of Binge Drinking Not on file 12/03 PHQ-2 Answer Date Recorded PHQ-2 Score 0 12/31/2019 Sex and Gender Information Value Date Recorded Sex Assigned at Not on file Gender Identity Not on file Sexual Orientation Not on file Job Start Date Occupation Industry Not on file Not on file Not on file documented as of this encounter Miscellaneous Notes * Telephone Encounter - William Allred DO - 08/22/2023 1:23 PM EDTSigned Prescriptions: Disp Refills Fenofibrate Micronized 200 MG Oral Capsule 90 Cap*1 Sig: TAKE ONE CAPSULE BY MOUTH EVERY DAY before breakfast Authorizing Provider: WILLIAM ALLRED * Telephone Encounter - Haritha Siddiqi RN - 08/22/2023 1:22 PM EDTPending Prescriptions: Disp Refills Fenofibrate Micronized 200 MG Oral Capsule 90 Cap*1 Sig: TAKE ONE CAPSULE BY MOUTH EVERY DAY before breakfast * Telephone Encounter - Mimi Zavala OSA - 08/22/2023 11:17 AM EDT Did you pend patient's preferred pharmacy and medication before forwarding?yes Pharmacy: [id number] [facility] Pending Prescriptions: Disp Refills Fenofibrate Micronized 200 MG Oral [id number] Cap*1 Sig: TAKE ONE CAPSULE BY MOUTH EVERY DAY before breakfast Last Visit: 08/02/2023 (in office), Visit date not found (telemedicine) Next Visit: 03/15/2024 If no future appointments scheduled, and last appointment is greater than a year ago, please schedule patient for a follow-up appointment Last date the medication was ordered: 10/19/22 Is this request for a controlled substance?No Urine Drug Screen:No results found for this or any previous visit. Patient Phone Numbers Labs: Lab Results Component Value Date/Time CREAT 0.8 08/02/2023 09:27 AM CREAT 1.0 01/07/2020 08:28 AM POTASSIUM 4.5 08/02/2023 09:27 AM POTASSIUM 4.7 01/07/2020 08:28 AM TSH 1.41 04/06/2021 03:39 PM TSH 1.05 01/19/2019 09:50 AM LDLCALC 150 (H) 08/02/2023 09:27 AM LDLCALC 112 01/07/2020 08:28 AM LDLDIRECT NOT APPLICABLE 01/07/2020 08:28 AM LDLDIRECT 104 (H) 06/06/2008 09:00 AM ALT 19 08/02/2023 09:27 AM ALT 17 01/07/2020 08:28 AM HGBA1C 10.5 (H) 08/02/2023 09:27 AM HGBA1C 8.0 (H) 04/29/2020 01:05 PM documented in this encounter Plan of Treatment Upcoming Encounters Date Type Department Care Team (Late st Contact Info) Description 03/15/2024 8:30 AM EST Office Visit Family Medicine [address] [phone] William Allred[address] [place] [id number] Health Maintenance Due Date Last Done Comments Fecal Occult Blood Test 2006 Sigmoidoscopy 2006 Pneumococcal Vaccine: Pediatrics (0 to 5 Years) and At-Risk Patients (6 to 64 Years) (2 of 2 - PCV) 06/16/2009 06/16/2008 Depression Screening 12/30/2020 12/31/2019 Colonoscopy 03/15/2022 03/15/2012, 03/15/2012 Diabetic Eye Exam 05/16/2022 05/16/2021, , 11/12/2018, Additional history exists COVID-19 Vaccine ( season) 2022 Influenza Vaccine (FLU shot) (Season Ended) 2023 03/07/2014, 03/07/2014, 02/12/2013, Additional history exists HbA1c 02/02/2024 08/02/2023, 02/0 11/2022, 07/09/2021, Additional history exists Albumin/Creatinine Ratio 08/01/2024 024, 05/11/2022, 04/06/2021, Additional history exists B-12 08/01/2024 08/02/2023, 020 11/2022, 04/06/2021, Additional history exists Diabetic Foot Exam 08/01/2024 08/02/2023, 0 05/27/2022, 07/13/2021, Additional history exists GFR 08/01/2024 08/02/2023, 04/0 11/2021, 04/06/2021, Additional history exists Cologuard 07/11/2025 07/11/2022, 04/0 05/2022, 07/03/2022 Colorectal Cancer Screening 07/11/2025 Lipid Panel 08/01/2028 08/02/2023, 02/0 11/2022, 04/06/2021, Additional history exists DTaP,Tdap,and Td Vaccines (3 - Td or Tdap) 12/26/2028 12/26/2018, 10/29/2007 Hepatitis B Completed 04/28/2014, 11/02, 10/24/2013 Zoster Vaccines Completed 09/01/2020, 06/08/2020 GARDASIL-HPV IMMUNIZATION SERIES Aged Out No longer eligible based on patient's age to complete this topic MENINGOCOCCAL (MENACTRA/MENVEO) Aged Out No longer eligible based on patient's age to complete this topic documented as of this encounter Medical Devices Not on filedocumented as of this encounter Visit Diagnoses Diagnosis Dyslipidemia, goal LDL below 100 Other and unspecified hyperlipidemia documented in this encounter Care Teams Lift Operator Relationship Specialty Start Date End Date William Allred DO [address] [place] [address] [place] [id number] PCP - General Internal Medicine 09/14/18 documented as of this encounter
--- OUTSIDE RECORDS SUMMARY | 2023-11-09 01:12 | External Medical Summary | Summary of Care ---
Author Name Unknown Organization [facility] Address [address] [place] [address] Phone [phone] Care Team Providers Care Plant Manager Name Role Phone William Allred DO Primary Care Provider [phone] Reason for Visit * Reason Onset Date Comments Medication Refill 10/16/2023 Encounter Details Date Type Department Care Team (Late st Contact Info) Description 10/16/2023 Refill Family Medicine [address] [phone] William Allred DO [address] [place] [address] [place] [address] Allergies Active Allergy Reactions Criticality Noted Date Comments Semaglutide(0.25 Or 0.5mg-Dos) 05/12 abd pain, nausea documented as of this encounter (statuses as of 10/17/2023) Medications Medication Sig Dispensed Refills Start Date End Date Status ASPIRIN 81 MG PO TABSIndications:HTN , goal to be determined one tab by mouth daily 34 5 10/08/2004 Active Blood Glucose Monitoring Suppl (ONETOUCH ULTRA MINI) W/DEVICE KIT 03/13/2016 Active UltiCare Short Pen [place] 31G X 8 MM (Insulin Pen Needle)Indications: Uncontrolled type 2 diabetes mellitus with hyperglycemia (HCC) Use with insulin daily up to 5 times daily E11.9 500 Each 1 10/19/2022 Active Empagliflozin 25 MG Oral Tablet (Jardiance)Indicati [...] a meal.. 90 Tablet 1 01/04/2023 Active Meloxicam 15 MG Oral Tablet (Mobic)Indications: Rib pain on right side take 1 tablet in the morning for pain. 90 Tablet 06/30/2023 Active Atenolol 50 MG Oral Tablet (Tenormin) Take 1 Tablet by mouth in the morning. 90 Tablet 3 08/22/2023 Active Lisinopril 40 MG Oral TabletIndications:H TN, goal below 140/90 Take 1 Tablet by mouth in the morning. 90 Tablet 3 08/22/2023 Active Fenofibrate Micronized 200 MG Oral CapsuleIndications: Dyslipidemia, goal LDL below 100 TAKE ONE CAPSULE BY MOUTH EVERY DAY before breakfast 90 Capsule 08/22/2023 Active Insulin Pen Needle 31G X 8 MMIndications:Uncon trolled type 2 diabetes mellitus with hyperglycemia (HCC) USE WITH Lantus PEN ONCE DAILY 100 Each 09/12/2023 Active Lantus SoloStar 100 UNIT/ML Subcutaneous Solution Pen-injectorIndicat ions:Uncontrolled type 2 diabetes mellitus with hyperglycemia (HCC) INJECT 50 UNITS UNDER THE SKIN AT BEDTIME 45 mL 09/12/2023 Active Easy Comfort LancetsIndications: Uncontrolled type 2 diabetes mellitus with hyperglycemia (HCC) Test 3 times daily dx e11.9 pt on insulin 300 Each 09/12/2023 Active OneTouch Verio In Vitro Strip (Glucose Blood)Indications:U ncontrolled type 2 diabetes mellitus with hyperglycemia (HCC) Use up to 3 times a day E11.9 pt is on insulin 100 Strip 09/12/2023 Active metFORMIN HCl ER 500 MG Oral Tablet Extended Release 24 Hour (Glucophage XR) Take 1 Tablet by mouth in the morning. 90 Tablet 3 10/17/2023 Active metFORMIN HCl ER 500 MG Oral Tablet Extended Release 24 Hour (Glucophage XR) Take 1 Tablet by mouth in the morning. 90 Tablet 06/30/2023 4 Discontinue d(Refill) documented as of this encounter (statuses as of 10/17/2023) Active Problems Problem Noted Date Diagnosed Date [...] as of this encounter (statuses as of 10/17/2023) Resolved Problems Problem Noted Date Diagnosed Date Resolved Date Asymptomatic stenosis of right carotid artery 04/08/19 21 08/02/2023 Overview: 50-69% 04/2020 Prostate cancer 12/26/2018 12/26/2018 [...] glucose 367, hgba1c 10.3 Mixed dyslipidemia 04/22/2008 9 Overview: Per Lipid Taxonomy. CHOL 346, [...] as of this encounter (statuses as of 10/17/2023) Immunizations Name Administration Dates Next Due Hepatitis B, 20+ yrs 04/28/2014,11/25/2013,10/24 Pneumococcal Polysaccharide PPV23 (Pneumovax) 06/16/2008 Seasonal Influenza, Split, I IV3, With Preserve, Inj 03/07/2014,02/12/2013,02/24/2012,01/01 TDAP (age 10 and older)(Boostrix) 12/26/2018 TDAP, Age 7 and older, IM (Adacel) 10/29/2007 Zoster Vaccine Recombinant (Shingrix) 09/01/2020 ,06/08/2020 [...] Telephone Encounter - William Allred DO - 10/17/2023 8:26 AM EDTSigned Prescriptions: Disp Refills metFORMIN HCl ER 500 MG Oral Tablet Extend*90 Tab*3 Sig: Take 1 Tablet by mouth in the morning. Authorizing Provider: WILLIAM ALLRED * Telephone Encounter - Haritha Siddiqi RN - 10/16/2023 4:14 PM EDTPending Prescriptions: Disp Refills metFORMIN HCl ER 500 MG Oral Tablet Extend*90 Tab*3 Sig: Take 1 Tablet by mouth in the morning. * Telephone Encounter - Claire Velasquez OSA - 10/16/2023 1:25 PM EDT Did you pend patient's preferred pharmacy and medication before forwarding?yes Pharmacy: [id number] [facility] Pending Prescriptions: Disp Refills metFORMIN HCl ER 500 MG Oral Tablet Exten*90 Tab*0 Sig: Take 1 Tablet by mouth in the morning. Last Visit: 08/02/2023 (in office), Visit date not found (telemedicine) Next Visit: 03/15/2024 If no future appointments scheduled, and last appointment is greater than a year ago, please schedule patient for a follow-up appointment Last date the medication was ordered: 06.30.23 Is this request for a controlled substance?No [...] 8:30 AM EST Office Visit Family Medicine [address] [phone] Allred, William [address] [place] [address] Health Maintenance Due Date Last Done Comments Fecal Occult Blood Test 2006 Sigmoidoscopy 2006 Pneumococcal Vaccine: Pediatrics (0 to 5 Years) and At-Risk Patients (6 to 64 Years) (2 of 2 - PCV) 06/16/2009 06/16/2008 Depression Screening 12/30/2020 12/31/2019 Colonoscopy 03/15/2022 03/15/2012, 03/15/2012 Diabetic Eye Exam 05/16/2022 05/16/2021, , 11/12/2018, Additional history exists COVID-19 Vaccine ( season) 2022 Influenza Vaccine (FLU shot) (#1) 2023 03/07/2014, 03/07/2014, 02/12/2013, Additional history exists HbA1c 02/02/2024 08/02/2023, 02/0 11/2022, 07/09/2021, Additional history exists Albumin/Creatinine Ratio 08/01/2024 024, 05/11/2022, 04/06/2021, Additional history exists B-12 08/01/2024 08/02/2023, 02/0 11/2022, 04/06/2021, Additional history exists Diabetic Foot Exam 08/01/2024 08/02/2023, 0 05/27/2022, 07/13/2021, Additional history exists GFR 08/01/2024 08/02/2023, 04/0 11/2021, 04/06/2021, Additional history exists Cologuard 07/11/2025 07/11/2022, 04/0 05/2022, 07/03/2022 Colorectal Cancer Screening 07/11/2025 Lipid Panel 08/01/2028 08/02/2023, 02/0 11/2022, 04/06/2021, Additional history exists DTaP,Tdap,and Td Vaccines (3 - Td or Tdap) 12/26/2028 12/26/2018, 10/29/2007 *BASELINE EKG FOR HTN Completed 07/19/2010 Hepatitis B Vaccine Completed 04/28/2014, 11/25/2013, 10/24/2013 Zoster Vaccines Completed 09/01/2020, 06/08/2020 HPV (Gardasil) Vaccine Aged Out No lo nger eligible based on patient's age to complete this topic MENINGOCOCCAL (MENACTRA/MENVEO) Aged Out No longer eligible based on patient's age to complete this topic documented as of this encounter Medical Devices Not on filedocumented as of this encounter Care Teams Plant Manager Relationship Specialty Start Date End Date William Allred DO [address] [place] [address] [place] [id number] PCP - General Internal Medicine 09/14/18 documented as of this encounter
--- OUTSIDE RECORDS SUMMARY | 2023-11-09 01:12 | External Medical Summary | Summary of Care ---
Author Name Unknown Organization [facility] Address [address] [place] [address] Phone [phone] Care Team Providers Care Production Inspector Name Role Phone William Allred DO Primary Care Provider Reason for Visit * Reason Onset Date Comments Medication Refill 10/16/2023 Encounter Details Date Type Department Care Team (Late st Contact Info) Description 10/16/2023 Refill Family Medicine [address] [phone] William Allred [address] [place] [address] Adjustment disorder with anxious mood Allergies Active Allergy Reactions Criticality Noted Date [...] W/DEVICE KIT 03/13/2016 Active UltiCare Short Pen [place] 31G X 8 MM (Insulin Pen Needle)Indications: [...] before breakfast 90 Capsule 1 08/22/2023 Active Insulin Pen Needle 31G X [...] dx e11.9 pt on insulin 300 Each 3 09/12/2023 Active OneTouch Verio In Vitro Strip (Glucose Blood)Indications:U ncontrolled type 2 diabetes mellitus with hyperglycemia (HCC) Use up to 3 times a day E11.9 pt is on insulin 100 Strip 09/12/2023 Active DULoxetine HCl 30 MG Oral Capsule Delayed Release Particles (Cymbalta)Indicatio ns:Adjustment disorder with anxious mood Take 1 Capsule by mouth in the morning. Do not cut, crush or chew. 90 Capsule 2 10/17/2023 Active DULoxetine HCl 30 MG Oral Capsule Delayed Release Particles (Cymbalta)Indicatio ns:Adjustment disorder with anxious mood Take 1 Capsule by mouth in the morning. Do not cut, crush or chew. 90 Capsule 2 10/21/2022 4 Discontinue d(Refill) metFORMIN HCl ER 500 MG Oral Tablet [...] glucose 367, hgba1c 10.3 Mixed dyslipidemia 04/22/2008 Overview: Per Lipid Taxonomy. CHOL 346, HDL [...] Encounter - William Allred DO - 10/17/2023 8:25 AM EDTSigned Prescriptions: Disp Refills DULoxetine HCl 30 MG Oral Capsule Delayed *90 Cap*2 Sig: Take 1 Capsule by mouth in the morning. Do not cut, crush or chew. Authorizing Provider: WILLIAM ALLRED * Telephone Encounter - Haritha Siddiqi RN - 10/16/2023 4:15 PM EDTPending Prescriptions: Disp Refills DULoxetine HCl 30 MG Oral Capsule Delayed *90 Cap*2 Sig: Take 1 Capsule by mouth in the morning. Do not cut, crush or chew. * Telephone Encounter - Claire Velasquez, ELY - 10/16/2023 1:39 PM EDT Did you pend patient's preferred pharmacy and medication before forwarding?yes Pharmacy: [id number] [address] [facility] Pending Prescriptions: Disp Refills DULoxetine HCl 30 MG Oral Capsule Delayed*90 Cap*2 Sig: Take 1 Capsule by mouth in the morning. Do not cut, crush or chew. Last Visit: 08/02/2023 (in office), Visit date not found (telemedicine) Next Visit: 03/15/2024 If no future appointments scheduled, and last appointment is greater than a year ago, please schedule patient for a follow-up appointment Last date the medication was ordered: 10.22.23 Is this request for a controlled substance?No [...] 8:30 AM EST Office Visit Family Medicine [address] [place] [phone] William Allred[address] [place] [address] Health Maintenance Due Date Last Done Comments [...] 02/12/2013, Additional history exists HbA1c 02/02/2024 08/02/2023, 020 11/2022, 07/09/2021, Additional history exists Albumin/Creatinine Ratio 08/01/20242 024, 05/11/2022, 04/06/2021, Additional history exists B-12 08/01/2024 08/02/2023, 0 11/2022, 04/06/2021, Additional history exists Diabetic Foot Exam 08/01/2024 08/02/2023, 0 05/27/2022, 07/13/2021, Additional history exists GFR 08/01/2024 08/02/2023, 040 11/2021, 04/06/2021, Additional history exists Cologuard 07/11/2025 07/11/2022, 05/2022, 07/03/2022 Colorectal Cancer Screening 07/11/2025 Lipid Panel 08/01/2028 08/02/2023, 11/2022, 04/06/2021, Additional history exists DTaP,Tdap,and Td [...] as of this encounter Visit Diagnoses Diagnosis Adjustment disorder with anxious mood Adjustment disorder with anxiety documented in this encounter Care Teams Production Inspector Relationship Specialty Start Date End Date William Allred DO [address] [place] [address] [place] [phone] PCP - General Internal Medicine 09/14/18 documented as of this encounter
--- OUTSIDE RECORDS SUMMARY | 2023-11-09 01:12 | External Medical Summary | Summary of Care ---
Author Name Unknown Organization [facility] Address [address] [place] [address] Phone [phone] Care Team Providers Care Home Health Clinician Name Role Phone Katherine Love Primary Care Provider Encounter Details Date Type Department Care Team (Late st Contact Info) Description 09/05/2023 Population Health External Data Unspecified Department Allergies Active Allergy Reactions Criticality Noted Date Comments Semaglutide(0.25 Or 0.5mg-Dos) 05/12 abd pain, nausea documented as of this encounter (statuses as of 09/05/2023) Medications Medication Sig Dispensed Refills Start Date End Date Status ASPIRIN 81 MG PO TABSIndications:HTN, goal to be determined one tab by mouth daily 34 5 10/08/2004 Active EASY COMFORT LANCETS MISC 03/13/2016 Active Blood Glucose Monitoring Suppl (ONETOUCH ULTRA MINI) W/DEVICE KIT 03/13/2016 Active ONETOUCH ULTRA BLUE STRPIndications:Type 2 diabetes mellitus with hemoglobin A1c goal of less than 7.0% ([facility]) test blood sugar 6 times daily 200 Strip 5 03/28/2017 Active UltiCare Short Pen [place] 31G X 8 MM (Insulin Pen Needle)Indications:Un controlled type 2 diabetes mellitus with hyperglycemia (HCC) Use with insulin daily up to 5 times daily E11.9 500 Each 1 10/19/2022 Active DULoxetine HCl 30 MG Oral Capsule Delayed Release Particles (Cymbalta)Indications :Adjustment disorder with anxious mood Take 1 Capsule by mouth in the morning. Do not cut, crush or chew. 90 Capsule 2 10/21/2022 Active Empagliflozin 25 MG Oral Tablet (Jardiance)Indication s:Uncontrolled type 2 diabetes mellitus with hyperglycemia (HCC) Take 1 Tablet by mouth in the morning. 90 Tablet 1 10/21/2022 Active glipiZIDE ER 10 MG Oral Tablet Extended Release 24 Hour (glipiZIDE XL)Indications:Uncont rolled type 2 diabetes mellitus with hyperglycemia (HCC) Take 1 Tablet by mouth in the morning. 30 minutes before a meal.. 90 Tablet 1 01/04/2023 Active metFORMIN HCl ER 500 MG Oral Tablet Extended Release 24 Hour (Glucophage XR) Take 1 Tablet by mouth in the morning. 90 Tablet 06/30/2023 Active Meloxicam 15 MG Oral Tablet (Mobic)Indications:Ri b pain on right side take 1 tablet in the morning for pain. 90 Tablet 06/30/2023 Active Atenolol 50 MG Oral Tablet (Tenormin) Take 1 Tablet by mouth in the morning. 90 Tablet 3 08/22/2023 Active Lisinopril 40 MG Oral TabletIndications:HTN , goal below 140/90 Take 1 Tablet by mouth in the morning. 90 Tablet 3 08/22/2023 Active Fenofibrate Micronized 200 MG Oral CapsuleIndications:Dy slipidemia, goal LDL below 100 TAKE ONE CAPSULE BY MOUTH EVERY DAY before breakfast 90 Capsule 1 08/22/2023 Active documented as of this encounter (statuses as of 09/05/2023) Active Problems Problem Noted Date Diagnosed Date [...] as of this encounter (statuses as of 09/05/2023) Resolved Problems Problem Noted Date Diagnosed Date [...] as of this encounter (statuses as of 09/05/2023) Immunizations Name Administration Dates Next Due Hepatitis [...] on file documented as of this encounter Plan of Treatment Upcoming Encounters Date Type Department Care Team (Late st Contact Info) Description 03/15/2024 8:30 AM EST Office Visit Family Medicine [address] [place] [phone] [address] [place] [address] Health Maintenance Due Date Last Done Comments [...] 04/06/2021, Additional history exists Cologuard 07/11/2025 07/11/2022, 040 05/2022, 07/03/2022 Colorectal Cancer Screening 07/11/2025 Lipid [...] filedocumented as of this encounter Care Teams Home Health Clinician Relationship Specialty Start Date End Date Katherine Love DO [address] [place] [address] [place] [phone] PCP - General Internal Medicine 09/14/18 documented as of this encounter"
--- OUTSIDE RECORDS SUMMARY | 2023-11-09 01:13 | External Medical Summary | Summary of Care ---
Author Name Unknown Organization [facility] Address [address] [facility] [place] [address] Phone [phone] Care Team Providers Care Geospatial Image Analyst Name Role Phone Katherine Love Primary Care Provider Reason for Visit * Reason Comments Outpatient Testing Encounter Details Date Type Department Care Team (Late st Contact Info) Description 08/02/2023 9:30 AM EDT Laboratory Laboratory [address] [place] [phone] [facility] [address] [place] [id number] [employer] Other*[id number]; Encounter for long-term (current) use of medications; Hyperlipidemia with target LDL less than 70; Uncontrolled type 2 diabetes mellitus with hyperglycemia (HCC); 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; History of prostate cancer Allergies Active Allergy Reactions Criticality Noted Date Comments Semaglutide(0.25 Or 0.5mg-Dos) 05/12 abd pain, nausea documented as of this encounter (statuses as of 08/02/2023) Medications Medication Sig Dispensed Refills Start Date End Date Status ASPIRIN 81 MG PO TABSIndications:HTN, goal to be determined one tab by mouth daily 34 5 10/08/2004 Active EASY COMFORT LANCETS MISC 0 03/13/2016 Active Blood Glucose Monitoring Suppl (Everlasting Values Organized Through LoveTOUCH ULTRA MINI) W/DEVICE KIT 0 03/13/2016 Active FindItUCH ULTRA BLUE STRPIndications:Type 2 diabetes mellitus with hemoglobin A1c goal of less than 7.0% (HCC) test blood sugar 6 times daily 200 Strip 5 03/28/2017 Active Fenofibrate Micronized 200 MG Oral CapsuleIndications:Dy slipidemia, goal LDL below 100 TAKE ONE CAPSULE BY MOUTH EVERY DAY before breakfast 90 Capsule 1 10/19/2022 Active UltiCare Short Pen [place] 31G X 8 MM (Insulin Pen Needle)Indications:Un [...] a meal.. 90 Tablet 1 01/04/2023 Active Atenolol 50 MG Oral Tablet (Tenormin) Take 1 Tablet by mouth in the morning. 90 Tablet 1 04/21/2023 Active Lisinopril 40 MG Oral TabletIndications:HTN , goal below 140/90 Take 1 Tablet by mouth in the morning. 90 Tablet 0 04/21/2023 Active metFORMIN HCl ER 500 MG Oral Tablet Extended Release 24 Hour (Glucophage XR) Take 1 Tablet by mouth in the morning. 90 Tablet 0 06/30/2023 Active Meloxicam 15 MG Oral Tablet (Mobic)Indications:Ri b pain on right side take 1 tablet in the morning for pain. 90 Tablet 0 06/30/2023 Active documented as of this encounter (statuses as of 08/02/2023) Active Problems Problem Noted Date Diagnosed Date [...] as of this encounter (statuses as of 08/02/2023) Resolved Problems Problem Noted Date Diagnosed Date [...] as of this encounter (statuses as of 08/02/2023) Immunizations Name Administration Dates Next Due Hepatitis [...] 8:30 AM EST Office Visit Family Medicine [address] [place] [phone] Katherine Love[address] [place] [address] Pending Results Name Type Priority Associated Diagnoses Date /Time MYCODE SUBSEQUENT ADULT Lab Routine [employer] Other*[id number] 08/02/2023 9:27 AM EDT ALBUMIN / CREATININE RATIO, URINE Lab Routine Encounter for long-term (current) use of medications 08/02/2023 9:27 AM EDT HEMOGLOBIN A1C Lab Routine Encounter for long-term (current) use of medications 08/02/2023 9:27 AM EDT LIPID PANEL WITH DIRECT LDL IF TG IS HIGH Lab Routine Encounter for long-term (current) use of medications 08/02/2023 9:27 AM EDT VITAMIN B12 Lab Routine Encounter for long-term (current) use of medications 08/02/2023 9:27 AM EDT COMPREHENSIVE METABOLIC PANEL Lab Routine Encounter for long-term (current) use of medications 08/02/2023 9:27 AM EDT CBC WITH WBC DIFFERENTIAL AND ANEMIA REFLEX WORKUP Lab Routine 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 08/02/2023 9:27 AM EDT PSA Lab Routine History of prostate cancer 08/02/2023 9:27 AM EDT MYCODE SST1 Lab Routine [employer] Other*[id number] 08/02/2023 9:27 AM EDT MYCODE SST2 Lab Routine [employer] Other*[id number] 08/02/2023 9:27 AM EDT ANEMIA CBC Lab Routine 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 08/02/2023 9:27 AM EDT DIFFERENTIAL, AUTOMATED Lab Routine retirement current use of therapeutic drug 08/02/2023 9:27 AM EDT ANEMIA REFLEX CHEMISTRY HOLD Lab Routine retirement current use of therapeutic drug 08/02/2023 9:27 AM EDT Health Maintenance Due Date Last Done Comments Fecal Occult Blood Test 2006 Sigmoidoscopy 2006 Pneumococcal Vaccine: Pediatrics (0 to 5 Years) and At-Risk Patients (6 to 64 Years) (2 of 2 - PCV) 06/16/2009 06/16/2008 Depression Screening 12/30/2020 12/31/2019 Colonoscopy 03/15/2022 03/15/2012, 03/15/2012 Diabetic Eye Exam 05/16/2022 05/16/2021, , 11/12/2018, Additional history exists GFR 07/09/2022 07/09/2021, 0 07/2021, 10/12/2020, Additional history exists HbA1c 11/08/2022 05/11/2022, 04/0 11/2021, 04/06/2021, Additional history exists COVID-19 Vaccine ( season) 2022 Albumin/Creatinine Ratio 05/11/2023 023, 04/06/2021, 07/01/2019, Additional history exists B-12 05/11/2023 05/11/2022, 01/0 07/2021, 01/07/2020, Additional history exists Influenza Vaccine (FLU shot) (Season Ended) 2023 03/07/2014, 03/07/2014, 02/12/2013, Additional history exists Diabetic Foot Exam 08/01/2024 08/02/2023, 0 05/27/2022, 07/13/2021, Additional history exists Cologuard 07/11/2025 07/11/2022, 04/0 05/2022, 07/03/2022 Colorectal Cancer Screening 07/11/2025 Lipid Panel 05/11/2027 05/11/2022, 01/0 07/2021, 01/07/2020, Additional history exists DTaP,Tdap,and Td Vaccines (3 [...] as of this encounter Visit Diagnoses Diagnosis [employer] Other*[id number] Encounter for long-term (current) use of medications Encounter for long-term (current) use of other medications Hyperlipidemia with target LDL less than 70 Other and unspecified hyperlipidemia Uncontrolled type 2 diabetes mellitus with hyperglycemia (HCC) retirement current use of therapeutic drug History of prostate cancer Personal history of malignant neoplasm of prostate documented in this encounter Care Teams Geospatial Image Analyst Relationship Specialty Start Date End Date Katherine Love DO [address] [place] [address] [place] [phone] PCP - General Internal Medicine 09/14/18 documented as of this encounter
--- OUTSIDE RECORDS SUMMARY | 2023-11-09 01:13 | External Medical Summary | Summary of Care ---
Author Name Unknown Organization [facility] Address [address] [place] [address] Phone [phone] Care Team Providers Care Intervention Manager Name Role Phone William Allred DO Primary Care Provider [phone] Reason for Visit * Reason Onset Date Comments Medication Refill 06/29/2023 Encounter Details Date Type Department Care Team (Late st Contact Info) Description 06/29/2023 Refill Family Medicine [address] [id number] William Allred [address] [place] [phone] Encounter for long-term (current) use of medications*; Rib pain on right side Allergies Active Allergy Reactions Criticality Noted Date Comments Semaglutide(0.25 Or 0.5mg-Dos) 05/12 abd pain, nausea documented as of this encounter (statuses as of 07/04/2023) Medications Medication Sig Dispensed Refills Start Date End Date Status ASPIRIN 81 MG PO TABSIndications:HT N, goal to be determined one tab by mouth daily 34 5 5 Active EASY COMFORT LANCETS MISC 0 6 Active Blood Glucose Monitoring Suppl (ONETOUCH ULTRA MINI) W/DEVICE KIT 0 6 Active ONETOUCH ULTRA BLUE STRPIndications:Ty pe 2 diabetes mellitus with hemoglobin A1c goal of less than 7.0% (HCC) test blood sugar 6 times daily 200 Strip 5 7 Active Fenofibrate Micronized 200 MG Oral CapsuleIndications :Dyslipidemia, goal LDL below 100 TAKE ONE CAPSULE BY MOUTH EVERY DAY before breakfast 90 Capsule 1 3 Active Insulin Glargine Solostar 100 UNIT/ML Subcutaneous Solution Pen-injector (Lantus SoloStar)Indicatio ns:Uncontrolled type 2 diabetes mellitus with hyperglycemia (HCC) Inject 50 units subcutaneously at bedtime. 45 mL 1 3 Active UltiCare Short [place] 31G X 8 MM (Insulin Pen Needle)Indications :Uncontrolled type 2 diabetes mellitus with hyperglycemia (HCC) Use with insulin daily up to 5 times daily E11.9 500 Each 1 3 Active DULoxetine HCl 30 MG Oral Capsule Delayed Release Particles (Cymbalta)Indicati ons:Adjustment disorder with anxious mood Take 1 Capsule by mouth in the morning. Do not cut, crush or chew. 90 Capsule 2 3 Active Empagliflozin 25 MG Oral Tablet (Jardiance)Indicat ions:Uncontrolled type 2 diabetes mellitus with hyperglycemia (HCC) Take 1 Tablet by mouth in the morning. 90 Tablet 1 3 Active Atenolol 50 MG Oral Tablet (Tenormin)Indicati ons:HTN, goal below 140/90 Take 1 Tablet by mouth in the morning. 90 Tablet 0 3 Active glipiZIDE ER 10 MG Oral Tablet Extended Release 24 Hour (glipiZIDE XL)Indications:Unc ontrolled type 2 diabetes mellitus with hyperglycemia (HCC) Take 1 Tablet by mouth in the morning. 30 minutes before a meal.. 90 Tablet 1 3 Active Atenolol 50 MG Oral Tablet (Tenormin) Take 1 Tablet by mouth in the morning. 90 Tablet 1 4 Active Lisinopril 40 MG Oral TabletIndications: HTN, goal below 140/90 Take 1 Tablet by mouth in the morning. 90 Tablet 0 4 Active metFORMIN HCl ER 500 MG Oral Tablet Extended Release 24 Hour (Glucophage XR) Take 1 Tablet by mouth in the morning. 90 Tablet 0 4 Active Meloxicam 15 MG Oral Tablet (Mobic)Indications :Rib pain on right side take 1 tablet in the morning for pain. 90 Tablet 0 4 Active metFORMIN HCl ER 500 MG Oral Tablet Extended Release 24 Hour (Glucophage XR) Take 1 Tablet by mouth in the morning. 90 Tablet 3 3 06/29/19 24 Discontinu ed(Refill) Meloxicam 15 MG Oral Tablet (Mobic)Indications :Rib pain on right side take 1 tablet in the morning for pain. 30 Tablet 0 3 06/29/19 24 Discontinu ed(Refill) documented as of this encounter (statuses as of 07/04/2023) Active Problems Problem Noted Date Diagnosed Date Mild nonproliferative diabet ic retinopathy of both eyes without macular edema associated with type 2 diabetes mellitus 05/25/2021 Uncontrolled type 2 diabetes mellitus with hyper glycemia 04/06/2021 Gastroparesis 06/18/2020 Overview: Diabetes vs Ozempic. Asymptomatic stenosis of right carotid artery Overview: 50-69% 04/2020 History of prostate cancer 02/08/2018 Erectile dysfunction following radical prostatec jovita 04/17/2015 Adjustment disorder with anxious mood 10/22/2012 Vitamin D deficiency 09/06/2012 HTN, goal below 140/90 11/21/2011 Overview: Per HTN Protocol #27. Hyperlipidemia with target LDL less than 70 11/2008 Overview: Per Lipid Taxonomy. CHOL 346, HDL 36, TRIG 1554 History of tobacco use documented as of this encounter (statuses as of 07/04/2023) Resolved Problems Problem Noted Date Diagnosed Date Resolved Date Prostate cancer 12/26/2018 12/26/2018 Night sweats 12/26/2018 [...] 05/21/2001 HYPERTENSION NOS 04/21/2008 BENIGN HYPERTENSION 02/07/20 Overview: Modified per HTN Taxonomy. Obesity, BMI not known 06/29 Overview: Per Obesity Taxonomy documented as of this encounter (statuses as of 07/04/2023) Immunizations Name Administration Dates Next Due Hepatitis [...] encounter Miscellaneous Notes * Telephone Encounter - Jake oJhnson - 07/04/2023 1:30 AM EDT Received message from [facility] regarding patient needing appointment and labs. Patient was notified. Successfully contacted patient and provided [facility] message. * Telephone Encounter - Sami Stokes [facility] - 06/30/2023 10:41 AM EDT Signed Prescriptions: Disp Refills metFORMIN HCl ER 500 MG Oral Tablet Extend*90 Tab*0 Sig: Take 1 Tablet by mouth in the morning. Authorizing Provider: WILLIAM ALLRED Ordering User: SAMI STOKES Meloxicam 15 MG Oral Tablet (Mobic) 90 Tab*0 Sig: take 1 tablet in the morning for pain. Authorizing Provider: WILLIAM ALLRED Ordering User: SAMI STOKES * Telephone Encounter - Sami Stokes [facility] - 06/30/2023 10:41 AM EDT Provided 90 days supply with 0 refill. Per refill protocol patient should have routine labs on filewithin past year. Reviewed AMP report, Care Gaps/Health Maintenance, medications list, and for any routine labs typically ordered for this patient. Lab orders placed. Please contact patient to schedule office visit with PRIMARY CARE and advise of labs ordered for blood draw AND URINE specimen (patient will have to be able to void to provide sample).. Recommend patient to fast if able for labs. Patient may still have water and regular medications. Advise to obtain labs before requesting the next refill. Last Visit: 08/02/2022 (in office), Visit date not found (telemedicine) Next Visit: Visit date not found Thank You, Sami Stokes, Pharm-D Clinical Pharmacist [facility] ([facility]) [phone] 06/30/2023, 10:41 AM * Telephone Encounter - Lana Mcguire PHARM Tech - 06/29/2023 3:50 PM EDT Did you pend patient's preferred pharmacy and medication before forwarding?yes Pharmacy: [id number] [address] Pending Prescriptions: Disp Refills metFORMIN HCl ER 500 MG Oral Tablet Exten*90 Tab*3 Sig: Take 1 Tablet by mouth in the morning. Meloxicam 15 MG Oral Tablet (Mobic) 30 Tab*0 Sig: take 1 tablet in the morning for pain. Last Visit: 08/02/2022 (in office), Visit date not found (telemedicine) Next Visit: Visit date not found If no future appointments scheduled, and last appointment is greater than a year ago, please schedule patient for a follow-up appointment Last date the medication was ordered: 03/10/2023, 05/27/2022 Is this request for a controlled substance?No Urine Drug Screen:No results found for this or any previous visit. Patient Phone Numbers Labs: Lab Results Component Value Date/Time CREAT 1.0 07/09/2021 01:35 PM CREAT 1.0 01/07/2020 08:28 AM POTASSIUM 5.0 07/09/2021 01:35 PM POTASSIUM 4.7 01/07/2020 08:28 AM TSH 1.41 04/06/2021 03:39 PM TSH 1.05 01/19/2019 09:50 AM LDLCALC 148 (H) 05/11/2022 01:54 PM LDLCALC 112 01/07/2020 08:28 AM LDLDIRECT NOT APPLICABLE 01/07/2020 08:28 AM LDLDIRECT 104 (H) 06/06/2008 09:00 AM ALT 15 07/09/2021 01:35 PM ALT 17 01/07/2020 08:28 AM HGBA1C 9.1 (H) 05/11/2022 01:54 PM HGBA1C 8.0 (H) 04/29/2020 01:05 PM documented in this encounter Plan of Treatment Scheduled Orders Name Type Priority Associated Diagnoses Orde r Schedule ALBUMIN / CREATININE RATIO, URINE Lab Routine Encounter for long-term (current) use of medications Expected: 07/01/2023 (Approximate), Expires: 06/29/2024 HEMOGLOBIN A1C Lab Routine Encounter for long-term (current) use of medications Expected: 07/01/2023 (Approximate), Expires: 06/29/2024 LIPID PANEL WITH DIRECT LDL IF TG IS HIGH Lab Routine Encounter for long-term (current) use of medications Expected: 07/01/2023 (Approximate), Expires: 06/29/2024 VITAMIN B12 Lab Routine Encounter for long-term (current) use of medications Expected: 07/01/2023 (Approximate), Expires: 06/29/2024 COMPREHENSIVE METABOLIC PANEL Lab Routine Encounter for long-term (current) use of medications Expected: 07/01/2023 (Approximate), Expires: 06/29/2024 CBC WITH WBC DIFFERENTIAL Lab Routine Encounter for long-term (current) use of medications Expected: 07/01/2023 (Approximate), Expires: 06/29/2024 Health Maintenance Due Date Last Done Comments Fecal Occult Blood Test 2006 Sigmoidoscopy 2006 Pneumococcal Vaccine: Pediatrics (0 to 5 Years) and At-Risk Patients (6 to 64 Years) (2 of 2 - PCV) 06/16/2009 06/16/2008 Depression Screening 12/30/2020 12/31/2019 Colonoscopy 03/15/2022 03/15/2012, 03/15/2012 Diabetic Eye Exam 05/16/2022 05/16/2021, , 11/12/2018, Additional history exists GFR 07/09/2022 07/09/2021, 01/0 07/2021, 10/12/2020, Additional history exists HbA1c 11/08/2022 05/11/2022, 04/0 11/2021, 04/06/2021, Additional history exists COVID-19 Vaccine ( season) 2022 Albumin/Creatinine Ratio 05/11/2023 023, 04/06/2021, 07/01/2019, Additional history exists B-12 05/11/2023 05/11/2022, 01/0 07/2021, 01/07/2020, Additional history exists Diabetic Foot Exam 05/27/2023 05/27/2022, 0 07/13/2021, 09/01/2020, Additional history exists Influenza Vaccine (FLU shot) (Season Ended) 2023 03/07/2014, 02/12/2013, 02/24/2012, Additional history exists Cologuard 07/11/2025 07/11/2022, 04/0 05/2022, 07/03/2022 Colorectal Cancer Screening 07/11/2025 DTaP,Tdap,and Td Vaccines (3 - Td or [...] as of this encounter Visit Diagnoses Diagnosis Encounter for long-term (current) use of medications- Primary Encounter for long-term (current) use of other medications Rib pain on right side Chest pain, unspecified documented in this encounter Care Teams Intervention Manager Relationship Specialty Start Date End Date William Allred DO [address] [place] [address] [place] [id number] PCP - General Internal Medicine 09/14/18 documented as of this encounter
--- OUTSIDE RECORDS SUMMARY | 2023-11-09 01:13 | External Medical Summary | Summary of Care ---
Author Name Unknown Organization [facility] Address [address] [place] [address] Phone [phone] Care Team Providers Care Reversing Mill Roller Name Role Phone Katherine Love DO Primary Care Provider + [phone] Reason for Referral * Evaluate & Treat - Unlimited Visits (Within 10 days (routine)) - Authorized Specialty Diagnoses / Procedures Referred By Gabriela tristan Referred To Contact Ophthalmology Diagnoses Mild nonproliferative diabetic retinopathy of both eyes without macular edema associated with type 2 diabetes mellitus (HCC) Katherine Love [address] [place] [address] Referral ID Status Reason Start Date Expiration Date Visits Requested Visits Authorized [id number] Authorized Specialty Services Required 08/02/2023 999 999 Question Answer Referral Priority Within 10 days (routine) Where should this appointment be scheduled? Tommy Referring for: Ophthalmology Conditions Ophthalmology Conditions Other Ophthalmology (comment) Reason for Visit * Reason Comments Re-Check Pt c/o hip and leg p ain and weakness x it's been going on a while but pt's is concerned about it; pt did not take BP meds yet today. Encounter Details Date Type Department Care Team (Latest Contact Info) Description 08/02/2023 8:30 AM EDT Office Visit Family Medicine [address] [place] [phone] Love, Katherine Matos[address] [place] [id number] Hyperlipidemia with target LDL less than 70*; Mild nonproliferative diabetic retinopathy of both eyes without macular edema associated with type 2 diabetes mellitus (HCC); Uncontrolled type 2 diabetes mellitus with hyperglycemia (HCC); HTN, goal below 140/90; History of prostate cancer; correction current use of therapeutic drug; Bilateral hip pain Allergies Active Allergy Reactions Criticality Noted Date Comments Semaglutide(0.25 Or 0.5mg-Dos) 05/12 abd pain, nausea documented as of this encounter (statuses as of 08/02/2023) Medications Medication Sig Dispensed Refills Start Date End Date Status ASPIRIN 81 MG PO TABSIndications:H TN, goal to be determined one tab by mouth daily 34 5 5 Active EASY COMFORT LANCETS MISC 0 6 Active Blood Glucose Monitoring Suppl (ENTrigue SurgicalTOUCH ULTRA MINI) W/DEVICE KIT 0 6 Active GreystripeUCH ULTRA BLUE STRPIndications:T ype 2 diabetes mellitus with hemoglobin A1c goal of less than 7.0% ([facility]) test blood sugar 6 times daily 200 Strip 5 7 Active Fenofibrate Micronized 200 MG Oral CapsuleIndication s:Dyslipidemia, goal LDL below 100 TAKE ONE CAPSULE BY MOUTH EVERY DAY before breakfast 90 Capsule 1 3 Active UltiCare Short Pen Marathon 31G X 8 MM (Insulin Pen Needle)Indication s:Uncontrolled type 2 diabetes mellitus with hyperglycemia (HCC) Use with insulin daily up to 5 times daily E11.9 500 Each 1 3 Active DULoxetine HCl 30 MG Oral Capsule Delayed Release Particles (Cymbalta)Indicat ions:Adjustment disorder with anxious mood Take 1 Capsule by mouth in the morning. Do not cut, crush or chew. 90 Capsule 2 3 Active Empagliflozin 25 MG Oral Tablet (Jardiance)Indica tions:Uncontrolle d type 2 diabetes mellitus with hyperglycemia (HCC) Take 1 Tablet by mouth in the morning. 90 Tablet 1 3 Active glipiZIDE ER 10 MG Oral Tablet Extended Release 24 Hour (glipiZIDE XL)Indications:Un controlled type 2 diabetes mellitus with hyperglycemia (HCC) Take 1 Tablet by mouth in the morning. 30 minutes before a meal.. 90 Tablet 1 3 Active Atenolol 50 MG Oral Tablet (Tenormin) Take 1 Tablet by mouth in the morning. 90 Tablet 1 4 Active Lisinopril 40 MG Oral TabletIndications :HTN, goal below 140/90 Take 1 Tablet by mouth in the morning. 90 Tablet 0 4 Active metFORMIN HCl ER 500 MG Oral Tablet Extended Release 24 Hour (Glucophage XR) Take 1 Tablet by mouth in the morning. 90 Tablet 0 4 Active Meloxicam 15 MG Oral Tablet (Mobic)Indication s:Rib pain on right side take 1 tablet in the morning for pain. 90 Tablet 0 4 Active Insulin Glargine Solostar 100 UNIT/ML Subcutaneous Solution Pen-injector (Lantus SoloStar)Indicati ons:Uncontrolled type 2 diabetes mellitus with hyperglycemia (HCC) Inject 50 units subcutaneously at bedtime. 45 mL 1 3 024 Discontinued Atenolol 50 MG Oral Tablet (Tenormin)Indicat ions:HTN, goal below 140/90 Take 1 Tablet by mouth in the morning. 90 Tablet 0 3 024 Discontinued documented as of this encounter (statuses as [...] on file documented as of this encounter Last Filed Vital Signs Vital Sign Reading Time Taken Comments Blood Pressure 152/90 08/02/2023 8:50 AM EDT Pulse 80 08/02/2023 8:50 AM EDT Temperature 36.5 C (97.7 F) 08/02/2023 8:50 AM ED T Respiratory Rate - - Oxygen Saturation 96% 08/02/2023 8:50 AM EDT Inhaled Oxygen Concentration - - Weight 71.8 kg (158 lb 3.2 oz) 08/02/2023 8:50 A M EDT Height 172.4 cm (5' 7.87") 08/02/2023 8:50 AM ED T Body Mass Index 24.15 08/02/2023 8:50 AM EDT documented in this encounter Progress Notes * Linda James LPN - 08/02/2023 9:05 AM EDT Socks and Shoes Removed for Annual Diabetic Foot Screening RIGHT FOOT: No Reddened, Cracking, Or Open Areas Noted. RIGHT Dorsalis Pedis Pulse: Palpable RIGHT Posterior Tibial Pulse: Palpable RIGHT Monofilament:Patient reports feeling monofilament pressure on plantar surface of foot LEFT FOOT: No Reddened, Cracking or Open Areas Noted. LEFT Dorsalis Pedis Pulse: Palpable LEFT Posterior Tibial Pulse: Palpable LEFT Monofilament:Patient reports feeling monofilament pressure on plantar surface of foot * Katherine Love DO - 08/02/2023 8:59 AM EDT Subjective: Gus Meza is a 62 year old male. Chief Complaint Patient presents with Re-Check Pt c/o hip and leg pain and weakness x it's been going on a while but pt's is concerned about it; pt did not take BP meds yet today. HPI: Gus Meza presents today for routine follow up. Concerns today include bilateral hip pain. He works on concrete. He does not anything for this other than the cymbalta that he is prescribed. He was raised to just put up with it, but his would like him to be evaluated. BP is high here today but he did not take his medication yet today. He does check his BP at home and says it is good but he does not recall the specific numbers. He has not been checking his blood sugars lately. He is not taking his Lantus or any other injectables anymore. He believes in healing prayer and was to pursue "natural remedies" for diabetes control. He is on maximum tolerated dose of metformin, as well as jardiance as well as glizipide. He is dueto see the eye doctor. He declines all injectables, including medications and vaccinations. PMH: Patient Active Problem List Diagnosis Code History of tobacco use Z87.891 Hyperlipidemia with target LDL less than 70 E78.5 HTN, goal below 140/90 I10 Vitamin D deficiency E55.9 Adjustment disorder with anxious mood F43.22 Erectile dysfunction following radical prostatectomy N52.31 History of prostate cancer Z85.46 Asymptomatic stenosis of right carotid artery I65.21 Gastroparesis K31.84 Uncontrolled type 2 diabetes mellitus with hyperglycemia (HCC) E11.65 Mild nonproliferative diabetic retinopathy of both eyes without macular edema associated with type 2 diabetes mellitus (HCC) E11.3293 Current Outpatient Medications Medication Sig Dispense Refill ASPIRIN 81 MG PO TABS one tab by mouth daily 34 5 EASY COMFORT LANCETS [facility] Blood Glucose Monitoring Suppl (ONETOUCH ULTRA MINI) W/DEVICE KIT ONETOUCH ULTRA BLUE STRP test blood sugar 6 times daily 200 Strip 5 Fenofibrate Micronized 200 MG Oral Capsule TAKE ONE CAPSULE BY MOUTH EVERY DAY before breakfast 90 Capsule 1 UltiCare Short Pen Marathon 31G X 8 MM (Insulin Pen Needle) Use with insulin daily up to 5 times daily E11.9 500 Each 1 DULoxetine HCl 30 MG Oral Capsule Delayed Release Particles (Cymbalta) Take 1 Capsule by mouth in the morning. Do not cut, crush or chew. 90 Capsule 2 Empagliflozin 25 MG Oral Tablet (Jardiance) Take 1 Tablet by mouth in the morning. 90 Tablet 1 glipiZIDE ER 10 MG Oral Tablet Extended Release 24 Hour (glipiZIDE XL) Take 1 Tablet by mouth in the morning. 30 minutes before a meal.. 90 Tablet 1 Atenolol 50 MG Oral Tablet (Tenormin) Take 1 Tablet by mouth in the morning. 90 Tablet 1 Lisinopril 40 MG Oral Tablet Take 1 Tablet by mouth in the morning. 90 Tablet 0 metFORMIN HCl ER 500 MG Oral Tablet Extended Release 24 Hour (Glucophage XR) Take 1 Tablet by mouthin the morning. 90 Tablet 0 Meloxicam 15 MG Oral Tablet (Mobic) take 1 tablet in the morning for pain. 90 Tablet 0 Insulin Glargine Solostar 100 UNIT/ML Subcutaneous Solution Pen-injector (Lantus SoloStar) Inject 50 units subcutaneously at bedtime. (Patient not taking: Reported on 08/02/2023) 45 mL 1 Atenolol 50 MG Oral Tablet (Tenormin) Take 1 Tablet by mouth in the morning. (Patient not taking: Reported on 08/02/2023) 90 Tablet 0 No current facility-administered medications for this visit. Review of patient's allergies indicates: Allergen Reactions Ozempic (0.25 Or 0.5 Mg-Dose) [Semaglutide(0.25 Or 0.5mg-Dos)] abd pain, nausea Objective: BP 152/90 | Pulse 80 | Temp 36.5 C (97.7 F) | Ht 1.724 m (5' 7.87") | Wt 71.8 kg (158 lb 3.2 oz) | SpO2 96% | BMI 24.15 kg/m | BSA 1.85 m General: alert, healthy, no distress, well nourished, and well developed Neck: supple, no adenopathy, thyroid normal size, non-tender, without nodularity Heart: regular rate & rhythm and no murmur Lungs: chest symmetric with normal AP diameter, no chest deformities noted, normal respiratory rateand rhythm, lungs clear to auscultation Abdomen: abdomen soft and non-tender Extremities: no joint deformities, effusion, or inflammation, no edema Neuro Exam: alert & oriented x 3 with fluent speech, no focal motor/sensory deficits, gait normal Skin: skin color, texture, turgor are normal, no rashes or significant lesions ASSESSMENT/PLAN: Hyperlipidemia with target LDL less than 70 (Primary) - not on a statin and unlikely to start due to his distrust of pharmaceuticals. - LIPID PANEL WITH DIRECT LDL IF TG IS HIGH; Future; Expected date: 08/02/2023 - COMPREHENSIVE METABOLIC PANEL; Future; Expected date: 08/02/2023 Mild nonproliferative diabetic retinopathy of both eyes without macular edema associated with type 2 diabetes mellitus (HCC) - ADULT/PEDS OPHTHALMOLOGY/OPTOMETRY REFERRAL OP Uncontrolled type 2 diabetes mellitus with hyperglycemia (HCC) - likely remains uncontrolled since he has stopped his ozempic and his lantus. He plans to use "natural remedies" to control his sugars although he does not have a specific plan for this at this time. Will try to achieve the best glucose control possible given his reluctance. - HEMOGLOBIN A1C; Future; Expected date: 08/02/2023 - ALBUMIN / CREATININE RATIO, URINE; Future; Expected date: 08/02/2023 - DIABETES FOOT EXAM HTN, goal below 140/90 - high here today but he did not take his medication. Unclear if it is controlled on days that he takes his medication. He does state that he takes his medication every day. 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 | Check-out note: Labs and x-ray today Katherine Love DO documented in this encounter Plan of Treatment Upcoming Encounters Date Type Department Care Team (Late st Contact Info) Description 03/15/2024 8:30 AM EST Office Visit Family Medicine [address] [place] [phone] Katherine Love DO [address] [place] [address] [place] [phone] Pending Results Name Type Priority Associated Diagnoses Date /Time CBC WITH WBC DIFFERENTIAL AND ANEMIA REFLEX WORKUP Lab Routine correction current use of therapeutic drug 08/02/2023 9:27 AM EDT PSA Lab Routine History of prostate cancer 08/02/2023 9:27 AM EDT Scheduled Orders Name Type Priority Associated Diagnoses Orde r Schedule CBC WITH WBC DIFFERENTIAL AND ANEMIA REFLEX WORKUP Lab Routine 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 Expected: 08/02/2023 (Approximate), Expires: 08/01/2024 PSA Lab Routine History of prostate cancer Expected: 08/02/2023 (Approximate), Expires: 08/01/2024 XR HIP BILAT MIN 5 VIEWS INCLUDING AP OF PELVIS Medical Imaging Routine Bilateral hip pain Ordered: 08/02/2023 Scheduled Referrals Name Type Priority Associated Diagnoses Orde r Schedule ADULT/PEDS OPHTHALMOLOGY/OPT OMETRY REFERRAL OP Referral Within 10 days (routine) Mild nonproliferative diabetic retinopathy of both eyes without macular edema associated with type 2 diabetes mellitus (HCC) Ordered: 08/02/2023 Health Maintenance Due Date Last Done Comments [...] Cancer Screening 07/11/2025 Lipid Panel 05/11/2027 05/11/2022, 010 07/2021, 01/07/2020, Additional history exists DTaP,Tdap,and Td [...] as of this encounter Visit Diagnoses Diagnosis Hyperlipidemia with target LDL less than 70- Primary Other and unspecified hyperlipidemia Mild nonproliferative diabetic retinopathy of both eyes without macular edema associated with type 2 diabetes mellitus (HCC) Uncontrolled type 2 diabetes mellitus with hyperglycemia (HCC) HTN, goal below 140/90 Unspecified essential hypertension History of prostate cancer Personal history of malignant neoplasm of prostate correction current use of therapeutic drug Bilateral hip pain Pain in joint, pelvic region and thigh documented in this encounter Care Teams Reversing Mill Roller Relationship Specialty Start Date End Date Katherine Love DO [address] [place] [address] [place] [id number] PCP - General Internal Medicine 09/14/18 documented as of this encounter
--- OUTSIDE RECORDS SUMMARY | 2023-11-09 01:13 | External Medical Summary ---
Author Name Unknown Address Unknown Organization [id number] [place] [address] [place] [address] Laboratory Report Ordering Provider Test Date Status SHMUEL FLORES 08/02/2023 09:27:55 Final Observation Date Value Abnormality Reference (Units ) Status MYCODE SPECIMEN-SST 08/02/2023 09:27:55 Freezing of extracted DNA, whole blood and/or serum. Final Performing Location LAB[facility]ORY [facility] - [address] [place] [address]
--- OUTSIDE RECORDS SUMMARY | 2023-11-09 01:13 | External Medical Summary ---
Author Name Unknown Address Unknown Organization [id number]:[facility] [place] [address] [facility] [address] Laboratory Report Ordering Provider Test Date Status DIVYA TAVAREZ 08/02/2023 09:27:55 Final Observation Date Value Abnormality Reference (Units ) Status HbA1C 08/02/2023 09:27:55 10.5 Above high normal 4. 0-5.6 (%) Final The use of HbA1c to monitor glycemic status is based on normal hemoglobin and HbA composition. This test should not be used in patients with abnormal hemoglobin that affects the half life of the red blood cell or the in vivo glycation rates. Glucose, estimated average 08/02/2023 09:27:55 255 Above high normal <126 (mg/dL) Woodrow bergeron Performing Location [facility] [place] [address] [facility] [address]
--- OUTSIDE RECORDS SUMMARY | 2023-11-09 01:13 | External Medical Summary ---
Author Name Unknown Address Unknown Organization [id number]:[facility] [place] [address] [facility] [place] [address] Laboratory Report Ordering Provider Test Date Status BRIGIDA THOMAS 08/02/2023 09:27:55 Final Observation Date Value Abnormality Reference (Units ) Status SYNC LEUKOCYTES IN BLOOD BY AUTOMATED COUNT 08/02/2023 09:27:55 6.03 4.00-10.80 (K/uL) Final Segs 08/02/2023 09:27:55 56.8 40.0-75.0 (%) Final Lymphs % 08/02/2023 09:27:55 28.2 18.0-42.0 (%) Final Monos 08/02/2023 09:27:55 8.0 1.0-11.0 (%) Final Eosinophils 08/02/2023 09:27:55 4.6 0.0-6.0 (%) Final Basos 08/02/2023 09:27:55 1.2 0.0-2.0 (%) Final Immature Granulocyte, Percent 08/02/2023 09:27:55 1.2 0.0-2.0 (%) Final Absolute Segs 08/02/2023 09:27:55 3.43 1.80-7.70 (K/uL) Final Lymphs, absolute 08/02/2023 09:27:55 1.70 1.00-4.80 (K/ul) Final Monos, Abs 08/02/2023 09:27:55 0.48 0.00-1.10 (K/uL) Final Eos, Abs 08/02/2023 09:27:55 0.28 0.00-0.70 (K/uL) Final Basos, Abs 08/02/2023 09:27:55 0.07 0.00-0.20 (K/uL) Final Immature Granulocytes, Number 08/02/2023 09:27:55 0.07 0.00-0.20 (K/uL) Final Performing Location [facility] [place] [address] [facility] [address]
--- OUTSIDE RECORDS SUMMARY | 2023-11-09 01:13 | External Medical Summary ---
Author Name Unknown Address Unknown Organization [id number]:[facility] [place] - [address] [facility] [address] Laboratory Report Ordering Provider Test Date Status DIVYA TAVAREZ 08/02/2023 09:27:55 Final Observation Date Value Abnormality Reference (Units ) Status BUN 08/02/2023 09:27:55 19 6-20 (mg/dL) Final Creatinine 08/02/2023 09:27:55 0.8 0.6-1.2 (mg/dL) Final Glomerular filtration rate/1.73 sq M.predicted [Volume Rate/Area] in Serum, Plasma or Blood by Creatinine-based formula (CKD-EPI) 08/02/2023 09:27:55 >90 >=60 (mL/min) Final eGFR is calculated based on the CKD-EPI 2020 equation Sodium 08/02/2023 09:27:55 139 135-146 (m mol/L) Final Potassium 08/02/2023 09:27:55 4.5 3.5-5.1 (m mol/L) Final Cl 08/02/2023 09:27:55 104 98-107 (mm ol/L) Final CO2 08/02/2023 09:27:55 23 22-32 (mmo l/L) Final Anion gap 08/02/2023 09:27:55 12 7-15 (mmol /L) Final Glucose 08/02/2023 09:27:55 242 Above high normal 70 -120 (mg/dL) Final Albumin 08/02/2023 09:27:55 4.4 3.8-5.0 (g /dL) Final AST (Aspartate aminotransferase) 08/02/2023 09:27:55 15 10-50 (U/L) Fin al Alk Phos 08/02/2023 09:27:55 68 35-130 (U/ L) Final Bilirubin, Total 08/02/2023 09:27:55 0.2 <=1 .2 (mg/dL) Final Calcium 08/02/2023 09:27:55 9.4 8.4-10.2 ( mg/dL) Final Protein 08/02/2023 09:27:55 6.4 6.0-8.3 (g /dL) Final ALT (Alanine aminotransferase) 08/02/2023 09:27:55 19 10-50 (U/L) Woodrow bergeron Performing Location [facility] [place] - [facility] [address] [facility] [address]
--- OUTSIDE RECORDS SUMMARY | 2023-11-09 01:13 | External Medical Summary ---
Author Name Unknown Address Unknown Organization [id number]:[facility] [place] [address] [place] [address] Laboratory Report Ordering Provider Test Date Status DIVYA TAVAREZ 08/02/2023 09:27:55 Final Observation Date Value Abnormality Reference (Units ) Status Vitamin B12 08/02/2023 09:27:55 292 158-0723 (pg/mL) Final Performing Location LAB[facility]ATORY [facility] - [address] [place] [address]
--- OUTSIDE RECORDS SUMMARY | 2023-11-09 01:13 | External Medical Summary ---
Author Name Unknown Address Unknown Organization [id number]:[facility] [place] - [address] [place] [address] Laboratory Report Ordering Provider Test Date Status SHMUEL FLORES 08/02/2023 09:27:55 Final Observation Date Value Abnormality Reference (Units ) Status MYCODE SPECIMEN-SST 08/02/2023 09:27:55 Freezing of extracted DNA, whole blood and/or serum. Final Performing Location [facility] - [address] [place] [address]
--- OUTSIDE RECORDS SUMMARY | 2023-11-09 01:13 | External Medical Summary ---
Author Name Unknown Address Unknown Organization [id number][place] [place] [address] [facility] [place] [address] Laboratory Report Ordering Provider Test Date Status DIVYA TAVAREZ 08/02/2023 09:27:55 Final Observation Date Value Abnormality Reference (Units ) Status Triglyceride 08/02/2023 09:27:55 144 <=174 ( mg/dL) Final Triglyceride Reference Range s (mg/dL):
<150 Acceptable
150-174 Borderline high
175-499 High
>=500 Very high Cholesterol 08/02/2023 09:27:55 219 Above high normal <200 (mg/dL) Final Total Cholesterol Reference Ranges (mg/dL):
<200 Desirable
200-239 Borderline high
>=240 High HDL 08/02/2023 09:27:55 40 >39 (mg/dL ) Final HDL Cholesterol Reference Ra nges (mg/dL):
>=60 High (Desirable)
<50 Low (Undesirable) For Females
<40 Low (Undesirable) For Males NON-HDL CHOLESTEROL 08/02/2023 09:27:55 179 Above high normal <=159 (mg/dL) Final Non-HDL Cholesterol Referenc e Range (mg/dL):
<100 Target level for high risk ASCVD patient
<130 Optimal for general population
130-159 Near optimal for general population
160-189 Borderline High
190-219 High
>=220 Very High LDL, (calculated) 08/02/2023 09:27:55 150 Above high n ormal <=129 (mg/dL) Final LDL Cholesterol Reference Ra nges (mg/dL):
<70 Target level for high risk ASCVD patient
<100 Optimal for general population
100-129 Near optimal for general population
130-159 Borderline high
160-189 High
>=190 Very high Performing Location [facility] [place] [address] [facility] [address]
--- OUTSIDE RECORDS SUMMARY | 2023-11-09 01:13 | External Medical Summary ---
Author Name Unknown Address Unknown Organization [id number][place] [facility] [place] [address] [place] [address] Laboratory Report Ordering Provider Test Date Status DIVYA TAVAREZ 08/02/2023 09:27:55 Final Normal: <30 mg/g creatinine< br/>High: 30-300 mg/g creatinine
Very High: >300 mg/g creatinine
Nephrotic: >2200 mg/g creatinine Observation Date Value Abnormality Reference (Units ) Status Albumin, Urine 08/02/2023 09:27:55 2.21 (mg/dL) Final Creatinine, Urine 08/02/2023 09:27:55 29 (mg/dL) Final Albumin/Creatinine [Mass Ratio] in Urine 08/02/2023 09:27:55 76 Above high normal <30 (mg/g Creat) Final Performing Location [facility] [facility] [place] [address] [place] [address]
--- OUTSIDE RECORDS SUMMARY | 2023-11-09 01:13 | External Medical Summary | Summary of Care ---
Author Name Unknown Organization [facility] Address [address] [place] [address] Phone [phone] Care Team Providers Care Arterial Embalmer Name Role Phone William Allred DO Primary Care Provider Reason for Visit * Reason Onset Date Comments Medication Refill 08/21/2023 Encounter Details Date Type Department Care Team (Late st Contact Info) Description 08/21/2023 Refill Family Medicine [address] [phone] William Allred [address] [place] [address] HTN, goal below 140/90 Allergies Active Allergy Reactions Criticality Noted Date [...] hemoglobin A1c goal of less than 7.0% ([facility]) test blood sugar 6 times daily 200 Strip 5 03/28/2017 Active Fenofibrate Micronized 200 MG Oral CapsuleIndications: Dyslipidemia, goal LDL below 100 TAKE ONE CAPSULE BY MOUTH EVERY DAY before breakfast 90 Capsule 1 10/19/2022 Active UltiCare Short Pen [place] 31G X 8 MM (Insulin Pen Needle)Indications: [...] the morning. 90 Tablet 3 08/22/2023 Active Atenolol 50 MG Oral Tablet (Tenormin) Take 1 Tablet by mouth in the morning. 90 Tablet 1 04/21/2023 4 Discontinue d(Refill) Lisinopril 40 MG Oral TabletIndications:H TN, goal below 140/90 Take 1 Tablet by mouth in the morning. 90 Tablet 04/21/2023 4 Discontinue d(Refill) documented as of this [...] glucose 367, hgba1c 10.3 Mixed dyslipidemia 04/22/2008 12/ 9 Overview: Per Lipid Taxonomy. CHOL 346, [...] encounter Miscellaneous Notes * Telephone Encounter - Paula Rick RPh - 08/22/2023 1:03 PM EDTSigned Prescriptions: Disp Refills Atenolol 50 MG Oral Tablet (Tenormin) 90 Tab*3 Sig: Take 1 Tablet by mouth in the morning.Authorizing Provider: WILLIAM ALLRED User: PAULA RICK Lisinopril 40 MG Oral Tablet 90 Tab*3 Sig: Take 1 Tablet by mouth in the morning.Authorizing Provider: WILLIAM ALLRED User: PAULA RICK documented in this encounter Plan of Treatment Upcoming Encounters Date Type Department Care Team (Late st Contact Info) Description 03/15/2024 8:30 AM EST Office [address] [phone] William Allred DO [address] [place] [address] [place] [phone] Health Maintenance Due Date Last Done Comments Fecal Occult Blood Test 2006 Sigmoidoscopy 2006 Pneumococcal Vaccine: Pediatrics (0 to 5 Years) and At-Risk Patients (6 to 64 Years) (2 of 2 - PCV) 06/16/2009 06/16/2008 Depression Screening 12/30/2020 12/31/2019 Colonoscopy 03/15/2022 03/15/2012, 03/15/2012 Diabetic Eye Exam 05/16/2022 05/16/2021, , 11/12/2018, Additional history exists COVID-19 Vaccine ( - season) 2022 Influenza Vaccine (FLU shot) (Season [...] as of this encounter Visit Diagnoses Diagnosis HTN, goal below 140/90 Unspecified essential hypertension documented in this encounter Care Teams Arterial Embalmer Relationship Specialty Start Date End Date William Allred DO [address] [place] [address] [place] [id number] PCP - General Internal Medicine 09/14/18 documented as of this encounter
--- OUTSIDE RECORDS SUMMARY | 2023-11-09 01:13 | External Medical Summary ---
Author Name Unknown Address Unknown Organization K01:[facility] - [address] [place] [address] Laboratory Report Ordering Provider Test Date Status BRIGIDA THOMAS 08/02/2023 09:27:55 Final Observation Date Value Abnormality Reference (Units ) Status PSA 08/02/2023 09:27:55 <0.02 <4.10 (ng/ mL) Final Performing Location [facility] - [address] [place] [address]
--- OUTSIDE RECORDS SUMMARY | 2023-11-09 01:13 | External Medical Summary ---
Author Name Unknown Address Unknown Organization K01:[facility] [address] [place], [place] [address] [address] Laboratory Report Ordering Provider Test Date Status BRIGIDA THOMAS 08/02/2023 09:27:55 Final Observation Date Value Abnormality Reference (Units ) Status WBC, Total 08/02/2023 09:27:55 6.03 4.00-10.8 0 (K/uL) Final RBC 08/02/2023 09:27:55 5.27 4.50-5.25 (M/uL) Final Hemoglobin 08/02/2023 09:27:55 16.0 14.0-16.8 (g/dL) Final Anemia reflex testing trigge rs on a HGB < 12.0 for Females and HGB < 13.0 for Males in accordance with the WHO Anemia Guidelines
Anemia reflex testing triggers on a HGB < 12.0 for Females and HGB < 13.0 for Males in accordance with the WHO Anemia Guidelines HCT 08/02/2023 09:27:55 47.8 40.0-48.4 (%) Final MCV 08/02/2023 09:27:55 90.7 82.0-99.5 (fL) Final MCH 08/02/2023 09:27:55 30.4 27.0-34.0 (pg) Final MCHC 08/02/2023 09:27:55 33.5 32.0-36.0 (g/dL) Final RDW 08/02/2023 09:27:55 13.3 11.5-15.5 (%) Final Platelets 08/02/2023 09:27:55 231 140-400 (K /uL) Final MPV 08/02/2023 09:27:55 11.1 6.6-11.1 ( fL) Final Nucleated erythrocytes/100 leukocytes [Ratio] in Blood by Automated count 08/02/2023 09:27:55 0 <=0 (/100 WBCs) [facility] Performing Location [facility] - [address] [facility] [id number]
--- OUTSIDE RECORDS SUMMARY | 2023-11-09 01:13 | External Medical Summary | Summary of Care ---
Author Name Unknown Organization [facility] [address] [facility] [address] Phone [phone] Care Team Providers Care Hvac Manager Name Role Phone Katherine Love DO Primary Care Provider [phone] Encounter Details Date Type Department Care Team (Late st Contact Info) Description 07/04/2023 Orders Only PATIENT PORTAL DO NOT DELETE THIS DEPT USED BY [place] [id number] Allergies Active Allergy Reactions Criticality Noted Date [...] 0 03/13/2016 Active Blood Glucose Monitoring Suppl (BluelightAppTOUCH ULTRA MINI) W/DEVICE KIT 0 03/13/2016 Active ONETOUCH ULTRA BLUE STRPIndications:Typ e 2 diabetes mellitus with hemoglobin A1c goal of less than 7.0% ([facility]) test blood sugar 6 times daily 200 Strip 5 03/28/2017 Active Fenofibrate Micronized 200 MG Oral CapsuleIndications: Dyslipidemia, goal LDL below 100 TAKE ONE CAPSULE BY MOUTH EVERY DAY before breakfast 90 Capsule 1 10/19/2022 Active Insulin Glargine Solostar 100 UNIT/ML Subcutaneous Solution Pen-injector (Lantus SoloStar)Indication s:Uncontrolled type 2 diabetes mellitus with hyperglycemia (HCC) Inject 50 units subcutaneously at bedtime. 45 mL 1 10/19/2022 Active UltiCare Short Pen [place] 31G X 8 MM (Insulin Pen Needle)Indications: [...] the morning. 90 Tablet 1 10/21/2022 Active Atenolol 50 MG Oral Tablet (Tenormin)Indicatio ns:HTN, goal below 140/90 Take 1 Tablet by mouth in the morning. 90 Tablet 0 12/19/2022 Active glipiZIDE ER 10 MG Oral Tablet Extended Release 24 Hour (glipiZIDE XL)Indications:Unco ntrolled type 2 diabetes mellitus with hyperglycemia (HCC) Take 1 Tablet by mouth in the morning. 30 minutes before a meal.. 90 Tablet 1 01/04/2023 Active Atenolol 50 MG Oral Tablet (Tenormin) Take 1 Tablet by mouth in the morning. 90 Tablet 1 04/21/2023 Active Lisinopril 40 MG Oral TabletIndications:H TN, [...] as of this encounter Plan of Treatment Health Maintenance Due Date Last Done Comments [...] filedocumented as of this encounter Care Teams Hvac Manager Relationship Specialty Start Date End Date Katherine Love DO [address] [place] [address] [place] [phone] PCP - General Internal Medicine 09/14/18 documented as of this encounter
[2023-11-09 05:52] LABS: Basophils # (auto) 0.07 K/uL (0.00-0.20); Basophils % (auto) 0.7 %; Eosinophils # (auto) 0.28 K/uL (0.00-0.50); Eosinophils % (auto) 2.6 %; Hematocrit (blood only) 48.5 % (42.0-52.0); Hemoglobin 16.8 g/dl (14.0-18.0); Immature Granulocytes # (auto) 0.06 K/uL (0.01-0.20); Immature Granulocytes % (auto) 0.6 %; Lymphocytes # (auto) 1.97 K/uL (1.20-3.40); Lymphocytes % (auto) 18.3 %; Mean Corpuscular Hemoglobin 30.4 pg (25.0-34.0); Mean Corpuscular Hgb Conc 34.6 g/dL (32.0-36.0); Mean Corpuscular Volume 87.7 fL (80.0-100.0); Monocytes # (auto) 0.74 K/uL (0.11-0.59); Monocytes % (auto) 6.9 %; Neutrophils # (auto) 7.62 K/uL (1.40-6.50); Neutrophils % (auto) 70.9 %; Platelet Count 216 K/uL (130-400); RDW Coefficient of Variation 12.8 % (11.5-14.5); RDW Standard Deviation 41.1 fL (36.4-46.3); Red Blood Count 5.53 M/uL (4.70-6.10); White Blood Count 10.74 K/ul (4.8-10.8)
[2023-11-09 05:58] LABS: BUN Creatinine Ratio 21.7 (10-20); Calcium 9.3 mg/dl (8.6-10.3); Creatinine Clr Calc Pharmacy 76.1 ml/min; Est GFR (African American) 103.7 ml/min; Est GFR (Non-African American) 89.5 ml/min; Magnesium 2.2 mg/dl (1.7-2.4); Potassium 3.9 mmol/L (3.5-5.1)
[2023-11-09 06:04] LABS: Troponin I High Sensitivity 5.6 pg/ml (0-20)
[2023-11-09 08:30] LABS: Estimated Average Glucose 194 mg/dl; Hemoglobin A1C 8.4 % (4.5-5.6)
--- NOTE | 2023-11-09 08:34 | Cardiology Consultation ---
Date of Consultation November 09, 2023 Assessment & Plan (1) Hypertensive urgency: (2) Palpitations: (3) AIVR (accelerated idioventricular rhythm): Plan Patient admitted for palpitations and hypertensive urgency. EKG demonstrated NSR without acute ischemic changes x2. HS troponin negative x4 since admission. Echocardiogram pending. Chest CTA and venous duplex unremarkable. He was treated with IV labetalol on arrival. home dose of atenolol 50 and lisinopril 40 mg continued. BP remains high after AM meds today. Transition atenolol to carvedilol 12.5 mg BID - first dose tonight as he already received morning atenolol. Continue lisinopril 40 mg Add Amlodipine 2.5 mg daily now given uncontrolled HTN. Patient had idioventricular escape rhythm in ER yesterday, correlating with symptoms. Strip discussed with EP. Typically not concerning. Hydration encouraged and currently receiving IV fluids. Improved morning labs. Electrolytes within normal limits. Continue ASA, statin, BB Given recent symptoms of dyspnea, b/l arm heaviness as outpatient, would recommend ischemic work up once his BP has improved. Will make NPO after midnight and consider stress echo in AM if BP improves. Would also recheck lipase as this was elevated yesterday on arrival. Case discussed with Dr. Martin I spent a total of 60 minutes on the date of service in preparation, delivery, and documentation of the care provided to this patient, excluding any time spent in the performance of separately billed services. Akiko Thomason PA-C Department of Cardiology, [facility] This chart was completed in part utilizing Speech Voice Recognition Software. Grammatical errors, random word insertions, pronoun errors, and incomplete sentences are an occasional consequence of this system due to software limitations, ambient noise, and hardware issues. Any formal questions or con cerns about the content, text, or information contained within the body of this dictation should be directly addressed to the provider for clarification. Supervising Physician Co-Signing Physician Notes Attending attestation: Case reviewed with the advanced practitioner. I have personally performed a history and physical examination on the patient. I have reviewed the advanced practitioner's documentation on the date of service referenced in note, and I agree with, and take responsibility for the plan of care. Subjective: Patient feeling improved at present. Had palpitations, and a pressure sensation in his head. No chest discomfort or recent shortness of breath, but does note shortness of breath with high levels of exertion on review of systems. Exam: Cardiovascular: Regular rhythm, no murmurs, no edema Data: High-sensitivity troponin negative x 4 measurements. EKG performed 11/09/2023 at 5:24 AM and interpreted Independently: Sinus rhythm at 63 bpm, normal EKG. EKG performed 11/08/2023 and interpreted Independently: Sinus rhythm at 65 bpm, age-indeterminate inferior infarct pattern, incomplete right bundle branch block pattern, chronic findings. No acute repolarization abnormalities. Summary transthoracic echocardiogram performed today 11/09/2023: The study was technically adequate. There is normal left ventricular wall thickness. The left ventricular wall motion is normal. Left ventricular systolic function is normal. The calculated left ventricular ejection fraction=61% (modified biplane). The right ventricle is normal in size and function. Aortic valve sclerosis mild, without significant aortic valvular stenosis. Grade I diastolic dysfunction, (abnormal relaxation pattern). Telemetry: Predominant rhythm sinus rhythm with average rate in the 70s. Occasional isolated unifocal PVCs. There was a brief run of accelerated junctional rhythm in the 60s, no prolonged bradycardia. outpatient lipid panel 08/02/23: 08/02/23 09:27 Triglycerides: 144 Cholesterol: 219 (H) Non-HDL Cholesterol: 179 (H) HDL Cholesterol: 40 LDL Cholesterol: 150 (H) Impression/ Plan: Hypertensive urgency Palpitations due to since ventricular ectopy Received atenolol 50 mg this morning. Will prescribe carvedilol 3.125 mg x 1 first dose now, next dose of carvedilol due tonight at 2100, and 2.5 mg twice daily from there. This will replace the atenolol. Lisinopril 40 mg will be continued. Low-dose amlodipine, 2.5 mg started. Blood pressure remains above goal at present. Anticipate patient will need to remain in the hospital. Per review of outpatient notes from PCP, patient has been off of statin therapy with atorvastatin since 2022. I think it is reasonable to start with making 1 medication change at a time and we will focus on the blood pressure and palpitations at present, but given his risk factors, statin therapy or alternative should be retried in the near future. Disposition: If systolic blood pressure improves down to the 150s this afternoon, could consider discharge, but anticipate he will need to be in the hospital another night. I spent a total of 25 minutes coordinating, documenting, and providing care for this patient excluding time spent in the performance of separately billed services or time spent by another provider. Berto Martin DO History of Present Illness Reason for Consultation: HTN; Palpitations Requesting Physician: Dr. Patel Attending Physician: Dr. Martin History of Present Illness Patient is a 62 year old male who presented to [facility] with complaints of palpitations over the last few days and uncontrolled HTN. history includes: 1. Hypertension 2. Dyslipidemia 3. DM 4. Non compliance with medications per outpatient notes Patient was at work yesterday and received news about scheduling changes, causing alot of stress. he felt sudden onset palpitations and felt "funny" in his head with pounding in his chest and came to the ER. BP was elevated on arrival. Treated with IV labetalol. EKG demonstrated NSR with possible old inferior infarct (previously noted). No acute ischemic changes. D.Dimer minimally elevated. Chest CTA was negative for acute pathology or PE. HS troponin unremarkable x4 since admission. BUN elevated and Hbg/hct elevated consistent with dehydration. Lipase elevated at 106. He denied chest pain or dyspnea. In ER he was noted to have PVC's and had wide complex rhythm (not tachycardiac). Likely idioventricular escape rhythm. He denies cardiac history of arrhythmia, CAD, CHF. He was told many years ago he had a heart murmur, but not recently. At time of consult, patient resting in bed. Feeling better. BP remains high this morning. Just took AM meds. No chest pain or dyspnea. No recurrent palpitations. He does admit that he has been noticing increased SOB recently with exertional activities, such as climbing a hill. He had one spell several weeks ago where he got [place] the [place] and developed b/l arm heaviness and felt very fatigued. Symptoms lasted about 5-10 minutes and resolved. Allergies Allergy/AdvReac Type Severity Reaction Status Date / Time semaglutide [From Ozempic] AdvReac Intermediate ABD Verified 11/08/23 17:50 PAIN/NAUSEA Home Medications Medication Instructions Recorded Confirmed Type aspirin 81 mg tablet,delayed 81 mg PO DAILY 08/30/22 11/08/23 History release atenolol 50 mg tablet 50 mg PO DAILY 08/30/22 11/08/23 History insulin glargine 100 unit/mL (3 50 unit subcut HS 08/30/22 11/08/23 History mL) subcutaneous pen (Lantus Solostar U-100 Insulin) duloxetine 30 mg capsule,delayed 30 mg PO DAILY 11/08/23 11/08/23 History release empagliflozin 25 mg tablet 25 mg PO DAILY 11/08/23 11/08/23 History (Jardiance) fenofibrate micronized 200 mg 200 mg PO DAILYBB 11/08/23 11/08/23 History capsule gabapentin 300 mg capsule 300 mg PO TID 11/08/23 11/08/23 History glipizide 10 mg tablet, extended 10 mg PO DAILYBB 11/08/23 11/08/23 History release 24 hr lisinopril 40 mg tablet 40 mg PO DAILY 11/08/23 11/08/23 History meloxicam 15 mg tablet 15 mg PO DAILY PRN Pain 11/08/23 11/08/23 History metformin 500 mg tablet,extended 500 mg PO DAILY 11/08/23 11/08/23 History release 24 hr Patient History Social History Smoking Status: Current every day smoker Tobacco Type: Cigarettes Cigarettes Per Day: 5; Second Hand Exposure: Yes; Do You Dip or Chew Tobacco: Yes; Tobacco Cessation Education Requested by Patient: No Hx Alcohol Use: No Hx Substance Use: Yes Last Used Substance: Days (ago) Last Used Substance Other:: 5 days Substance Use Type Other:: every 3 days Preferred Language: Lebanese Communication Ability: Effective Warehouse Supervisor Required: No Beliefs That Will Affect Care: None Current Living Situation: Spouse Other Information That Helps Us Care for You: No Feels Safe at Home: Yes Safety Concerns: Feels Safe At This Time Assistive Devices: None Review of Systems Review of Systems: All systems reviewed & are unremarkable except as noted in HPI & below Physical Exam Constitutional: WD/WN, vitals as above well nourished and average body habitus; no acute distress Neck: trachea midline, no thyromegaly Respiratory: normal respiratory effort; no labored breathing Auscultation: lungs clear to auscultation bilaterally Cardiovascular: Rate/Rhythm: regular rate and regular rhythm Heart Sounds: normal S1 and normal S2; no murmur Vessels: no JVD Extremities: no edema Gastrointestinal (Abdomen): normal bowel sounds, soft, nontender, no hepatosplenomegaly Musculoskeletal: no cyanosis or clubbing, extremities motor strength 5/5 Skin: no rashes, warm and dry Neurologic: PERRL, EOMI, accommodation nl, no face palsy, no dysarthria Results & Data Vital Signs (Past 12 Hours) Vital Signs Temp Pulse Pulse Resp BP BP Pulse Ox 11/09/23 08:00 67 11/09/23 07:01 36.8 C 71 19 166/71 H 95 11/09/23 03:09 36.6 C 71 18 152/85 H 97 11/09/23 01:00 74 11/08/23 23:40 36.9 C 68 16 170/84 H 93 11/08/23 22:33 77 13 11/08/23 22:30 147/77 H 11/08/23 22:30 147/77 H 11/08/23 22:18 79 19 11/08/23 22:12 75 27 H 11/08/23 22:12 77 11/08/23 22:00 161/89 H 11/08/23 22:00 161/89 H 11/08/23 22:00 161/89 H 11/08/23 21:48 78 24 11/08/23 21:45 82 24 11/08/23 21:30 144/84 H 11/08/23 21:12 78 27 H 11/08/23 21:03 77 29 H 11/08/23 21:00 151/104 H 11/08/23 21:00 151/104 H 11/08/23 20:57 88 24 O2 Del Method 11/09/23 08:00 11/09/23 07:01 Room Air 11/09/23 03:09 Room Air 11/09/23 01:00 11/08/23 23:40 Room Air 11/08/23 22:33 11/08/23 22:30 11/08/23 22:30 11/08/23 22:18 11/08/23 22:12 11/08/23 22:12 11/08/23 22:00 11/08/23 22:00 11/08/23 22:00 11/08/23 21:48 11/08/23 21:45 11/08/23 21:30 11/08/23 21:12 11/08/23 21:03 11/08/23 21:00 11/08/23 21:00 11/08/23 20:57 Laboratory Results Cardiac Enzymes 11/08/23 11/08/23 11/09/23 Range/Units 17:49 21:10 05:19 AST 19 (13-39) U/L Troponin I High Sens 6.5 4.8 5.6 (0-20) pg/ml Coagulation 11/08/23 Range/Units 17:49 PT 10.3 (9.0-12.0) Seconds APTT 27 (21-31) Seconds CBC 11/08/23 11/09/23 Range/Units 17:49 05:19 WBC 9.30 10.74 (4.8-10.8) K/ul RBC 6.10 5.53 (4.70-6.10) M/uL Hgb 18.1 H 16.8 (14.0-18.0) g/dl Hct 52.7 H 48.5 (42.0-52.0) % Plt Count 262 216 (130-400) K/uL Neut # (Auto) 6.14 7.62 H (1.40-6.50) K/uL Lymph # (Auto) 2.17 1.97 (1.20-3.40) K/uL [place] # (Auto) 0.58 0.74 H (0.11-0.59) K/uL Eos # (Auto) 0.28 0.28 (0.00-0.50) K/uL Baso # (Auto) 0.07 0.07 (0.00-0.20) K/uL Comprehensive Metabolic Panel 11/08/23 11/09/23 Range/Units 17:49 05:19 Sodium 138 140 (136-145) mmol/L Potassium 4.0 3.9 (3.5-5.1) mmol/L Chloride 105 110 H (98-107) mmol/L Carbon Dioxide 23 23 (21-32) mmol/L BUN 23 20 (6-23) mg/dl Creatinine 1.04 0.92 (0.6-1.4) mg/dl Glucose 131 H 74 (70-99(Fasting)) mg/dl Calcium 10.3 9.3 (8.6-10.3) mg/dl AST 19 (13-39) U/L ALT 17 (7-52) U/L Alkaline Phosphatase 42 (34-104) U/L Total Protein 7.8 (6.0-8.3) gm/dl Albumin 4.9 (3.4-5.0) gm/dl Intake and Output 11/08/23 11/09/23 11/09/23 22:59 06:59 14:59 Intake Total 1000 / 1000 Balance 1000 / 1000 Intake: IV 1000 / 1000 Sodium Chloride 0.9% 1,000 ml @ 1000 / 1000 999 mls/hr IV .Q1H1M ONE Rx#: [id number] Other: Other Intake Source Patient is NPO # Unmeasured Voids 1 Weight 73 kg 72.1 kg Weight Measurement Method Chair Scale Standing Scale Diagnostic Findings Telemetry reviewed: NSR in the 60-70's. Occ PVC. Yesterday afternoon in the ER, he had several runs of non sustained idioventricular rhythm, lasting 3-5 beats (confirmed by EP). Not VT. EKG reviewed dated 11/08/23 at 17:40: NSR, Possible old inferior infarct Possible old anterior infarct. No acute ischemic changes Repeat EKG From 11/09/23 at 5:24 AM NSR, possible old inferior infarct possible old anterior infarct No acute ST/T wave abnormalities Chest CT report reviewed from 11/08/23: IMPRESSION: Normal chest CTA. No pulmonary embolism. Chest Xray reviewed from 11/08/23: IMPRESSION: No acute cardiopulmonary abnormality is identified. Venous duplex report reviewed today: FINDINGS/IMPRESSION: Currently there is normal compressibility of the deep venous system from the common femoral vein through the proximal calf veins. No superficial venous thrombosis is identified. Prior outside data reviewed: EKG reviewed from July 2010: Normal sinus rhythm Inferior infarct noted Echo report reviewed from Apr 2008: Normal LVEF at 60-65% Diastolic dysfunction noted Mild thickening of the anterior mitral valve leaflet without stenosis Medications Administered Current Inpatient Medications Acetaminophen (Acetaminophen 325 Mg Tab) 650 mg PO Q4H PRN PRN Reason: Pain or Fever Stop: 12/08/23 23:39 Amlodipine Besylate (Amlodipine Besylate 5 Mg Tab) 2.5 mg PO QAM [facility] Stop: 12/09/23 11:29 Aspirin (Aspirin 81 Mg Ectab) 81 mg PO DAILY YANI Stop: 12/09/23 08:59 Last Admin: 11/09/23 08:40 Dose: 81 mg Carvedilol (Carvedilol 12.5 Mg Tab) 12.5 mg PO BIDM [facility] Stop: 12/09/23 16:59 Dextrose (Dextrose 50% 50 Ml Syringe) 25 - 50 ml IV UD PRN; Protocol PRN Reason: Hypoglycemia Protocol Stop: 12/08/23 23:39 Duloxetine HCl (Duloxetine Hcl 30 Mg Cap) 30 mg PO DAILY [facility] Stop: 12/09/23 08:59 Last Admin: 11/09/23 08:40 Dose: 30 mg Gabapentin (Gabapentin 300 Mg Cap) 300 mg PO TID YANI Stop: 12/09/23 08:59 Last Admin: 11/09/23 08:40 Dose: 300 mg Glucagon (Glucagon For Inj 1 Mg Vial) 1 mg SQ UD PRN; Protocol PRN Reason: Hypoglycemia Protocol Stop: 12/08/23 23:39 Glucose (Glucose 40% Gel 15 Gm Tube) 15 - 30 gm PO UD PRN; Protocol PRN Reason: Hypoglycemia Protocol Stop: 12/08/23 23:39 Glucose (Glucose 10 Tab/Tube) 4 - 8 tab PO UD PRN; Protocol PRN Reason: Hypoglycemia Treatment Stop: 12/08/23 23:39 Sodium Chloride (Nss) 1,000 mls @ 80 mls/hr IV .[id number] [facility] Stop: 11/09/23 12:09 Last Admin: 11/09/23 00:07 Dose: 80 mls/hr Insulin Aspart (Insulin Aspart Per Unit Charge) 0 units SC ACHS [facility] Stop: 12/09/23 00:00 Insulin Glargine (Lantus Per Unit Charge) 25 units SQ HS [facility] Stop: 12/08/23 23:39 Last Admin: 11/09/23 00:36 Dose: 15 units Labetalol HCl (Labetalol Hcl Iv 5 Mg/Ml 20ml) 10 mg IV Q4H PRN PRN Reason: Hypertension Stop: 12/08/23 23:39 Lisinopril (Lisinopril 40 Mg Tab) 40 mg PO DAILY [facility] Stop: 12/09/23 08:59 Last Admin: 11/09/23 08:40 Dose: 40 mg Miscellaneous (Order Awaiting Action: Fenofibrate Micronized 200 Mg Capsule) 1 each N/A QS [facility] Stop: 12/09/23 07:59 Last Admin: 11/09/23 08:39 Dose: Not Given Miscellaneous (Carbohydrates For Hypoglycemia ) 15 - 30 gm PO UD PRN PRN Reason: Hypoglycemia Protocol Stop: 12/08/23 23:39 Nitroglycerin (Nitroglycerin Sl 0.4 Mg/Tab Tab) 0.4 mg SL Q5M PRN PRN Reason: Chest Pain Stop: 12/08/23 23:39 Polyethylene Glycol (Polyethylene (Miralax) 17 Gm Pack) 17 gm PO DAILY PRN PRN Reason: Constipation Stop: 12/08/23 23:39
[2023-11-09] MEDS: ATENOLOL 50 MG TABLET PO SCH (08:40)
[2023-11-09] MEDS: ASPIRIN 81 MG ECTAB PO SCH (08:40)
[2023-11-09] MEDS: lisinopril 40 MG TAB PO SCH (08:40)
[2023-11-09] MEDS: GABAPENTIN 300 MG CAP PO SCH (08:40)
[2023-11-09] MEDS: DULoxetine HCL 30 MG CAP PO SCH (08:40)
--- NOTE | 2023-11-09 10:41 | Ultrasound Report ---
US venous doppler LE BI CLINICAL HISTORY: Elevated D dimer, R/O DVT TECHNIQUE: Bilateral lower extremity real-time compression venous ultrasound with Color Doppler imagi ng. Utilizing real-time ultrasonic imaging multiple real time high-resolution ultrasonic images with compression and noncompression maneuvers of the deep venous system in addition to color doppler imagi ng were performed from the common femoral vein through the proximal calf veins. COMPARISON: None available at the time of this dictation. FINDINGS/IMPRESSION: Currently there is normal compressibility of the deep venous system from the common femoral vein thro ugh the proximal calf veins. No superficial venous thrombosis is identified. ACT 112: Negative or not required by law. Electronically signed by: Chris Cantu M.D. 11/09/2023 10:40 AM
[2023-11-09] MEDS ORDERED: Nursing to Pharmacy Communication SCH (11:00)
--- NOTE | 2023-11-09 11:44 | Electrocardiogram Report ---
Test Reason : Blood Pressure : */* mmHG Vent. Rate : 65 BPM Atrial Rate : 65 BPM P-R Int : 170 ms QRS Dur : 86 ms QT Int : 402 ms P-R-T Axes : 68 15 46 degrees QTcB Int : 418 ms Normal sinus rhythm Low voltage QRS Possible Inferior infarct (cited on or before 15-Oct-2014) Incomplete right bundle branch block Abnormal ECG Confirmed by Zaire Cotton ([id number]) on 11/09/2023 11:43:53 AM Referred By: REFERRED SELF Confirmed By: Zaire Cotton
[2023-11-09] MEDS: amLODIPine BESYLATE 5 MG TAB PO SCH (12:12)
--- NOTE | 2023-11-09 14:29 | Electrocardiogram Report ---
Test Reason : Blood Pressure : */* mmHG Vent. Rate : 63 BPM Atrial Rate : 63 BPM P-R Int : 172 ms QRS Dur : 84 ms QT Int : 424 ms P-R-T Axes : 75 20 47 degrees QTcB Int : 433 ms Normal sinus rhythm Normal ECG When compared with ECG of 08-Nov-2023 17:40, (unconfirmed) No significant change was found Confirmed by Zaire Cotton ([id number]) on 11/09/2023 2:29:42 PM Referred By: REFERRED SELF Confirmed By: Zaire Cotton
[2023-11-09] MEDS: carvediloL 3.125 MG TAB PO ONE (15:04)
--- NOTE | 2023-11-09 15:49 | Hospitalist Progress Note ---
Date of Service November 09, 2023 Assessment & Plan (1) Hypertensive urgency: Plan: 62-year-old male with past medical history significant for uncontrolled diabetes, diabetic retinopathy, hyperlipidemia, hypertension, gastroparesis, history of tobacco use, depression with anxious mood, history of prostate cancer presents with palpitations and hypertensive urgency. Since yesterday he noticed having palpitations and also his blood pressure is running high. His blood pressure was in 170s. Denies headache. No dizziness. Vision is okay. No sore throat or cough. No fevers. No chest pain or shortness of breath. Had some nausea yesterday. No abdominal pain. Normal bowel and bladder movements. Resting comfortably. Patient had a brief run of wide-complex rhythm in the ER. Hypertensive urgency --ECHO: Normal left ventricular wall thickness. Left ventricular wall motion is normal. Left ventricle systolic function is normal. EF 61%. Right ventricle is normal in size and function. Aortic valve sclerosis mild, without significant aortic valvular stenosis. Grade 1 diastolic dysfunction. -Continue lisinopril 40 mg daily Atenolol changed to Coreg 12.5 mg twice a day Started on amlodipine 2.5 mg daily Monitor BP and adjust medications as able Appreciate cardiology input Palpitations Brief accelerated junctional rhythm Occasional PVCs Atenolol changed to Coreg Appreciate cardiology input Monitor Elevated D-dimer --CTA:Normal chest CTA. No pulmonary embolism. --Venous Doppler:Currently there is normal compressibility of the deep venous system from the common femoral vein through the proximal calf veins. No superficial venous thrombosis is identified. DM II HbA1c 8.4 Hold metformin and Jardiance Continue insulin while hospitalized Monitor BGs Adjust insulin dose as needed Hyperlipidemia Lipid panel from 08/02/2023 showed elevated total cholesterol, LDL Currently on Fenofibrate Previously on statin May need to be restarted on statin as outpatient Depression with anxious mood Continue Duloxetine H/O Prostate cancer Status post radical prostate removal in 2014 DVT Px: SCDs for now Code Status Full code Admission and Anticipated Discharge Date Admission Date: November 08, 2023 Subjective Patient is seen and examined at bedside Reports intermittent palpitations Also admits to have ongoing anxiety issues due to work Denies any chest pain, dyspnea, nausea, vomiting, abdominal pain Family at bedside No other complaints Review of Systems Review of Systems: All systems reviewed & are unremarkable except as noted in Subjective Physical Exam Physical Exam: Physical Exam: Vitals signs as noted above General Appearance:Moderately built and nourished, no apparent distress Head: normocephalic, Atraumatic Eyes: normal inspection, EOMI Neck: supple, Trachea midline Respiratory/Chest: Normal breath sounds, CTA, No accessory muscle use Cardiovascular: S1, S2, No murmur Abdomen/GI:Soft, Non tender, Bowel sounds present Extremities/Musculoskeletal:normal inspection, no edema Neurologic/Psych:AAOX3, grossly no focal neurological deficits Skin: normal color, warm Results & Data Results & Data Vital Signs (Past 12 Hours) Vital Signs Temp Pulse Pulse Resp BP BP Pulse Ox 11/09/23 15:02 36.7 C 64 19 136/80 98 11/09/23 13:56 83 11/09/23 11:22 36.4 C L 57 L 19 177/79 H 95 11/09/23 10:36 98 H 18 157/82 H 11/09/23 08:00 67 11/09/23 07:01 36.8 C 71 19 166/71 H 95 O2 Del Method 11/09/23 15:02 Room Air 11/09/23 13:56 11/09/23 11:22 Room Air 11/09/23 10:36 11/09/23 08:00 11/09/23 07:01 Room Air Laboratory Results Short CBC 11/08/23 11/09/23 Range/Units 17:49 05:19 WBC 9.30 10.74 (4.8-10.8) K/ul Hgb 18.1 H 16.8 (14.0-18.0) g/dl Hct 52.7 H 48.5 (42.0-52.0) % Plt Count 262 216 (130-400) K/uL BMP 11/08/23 11/09/23 17:49 05:19 Sodium 138 140 Potassium 4.0 3.9 Chloride 105 110 H Carbon Dioxide 23 23 BUN 23 20 Creatinine 1.04 0.92 Glucose 131 H 74 Calcium 10.3 9.3 Liver Function 11/08/23 Range/Units 17:49 Total Bilirubin 0.5 (0.2-1.0) mg/dl AST 19 (13-39) U/L ALT 17 (7-52) U/L Alkaline Phosphatase 42 (34-104) U/L Albumin 4.9 (3.4-5.0) gm/dl
[2023-11-09] MEDS ORDERED: carvediloL 12.5 MG TAB PO SCH (17:00)
[2023-11-09] MEDS: carvediloL 12.5 MG TAB PO SCH (20:41)
[2023-11-10 07:37] VITALS: RESP 19; O2SAT 97
[2023-11-10 07:51] LABS: Hematocrit (blood only) 48.6 % (42.0-52.0); Hemoglobin 16.7 g/dl (14.0-18.0); Mean Corpuscular Hemoglobin 29.6 pg (25.0-34.0); Mean Corpuscular Hgb Conc 34.4 g/dL (32.0-36.0); Mean Platelet Volume 10.2 fL (9.4-12.4); Platelet Count 218 K/uL (130-400); RDW Coefficient of Variation 12.8 % (11.5-14.5); RDW Standard Deviation 39.8 fL (36.4-46.3); Red Blood Count 5.65 M/uL (4.70-6.10); White Blood Count 7.08 K/ul (4.8-10.8)
[2023-11-10 08:10] LABS: BUN Creatinine Ratio 25.6 (10-20); Calcium 9.4 mg/dl (8.6-10.3); Creatinine Clr Calc Pharmacy 81.4 ml/min; Est GFR (African American) 108.5 ml/min; Est GFR (Non-African American) 93.6 ml/min
--- NOTE | 2023-11-10 10:04 | Electrocardiogram Report ---
Test Reason : Blood Pressure : */* mmHG Vent. Rate : 65 BPM Atrial Rate : 65 BPM P-R Int : 178 ms QRS Dur : 84 ms QT Int : 410 ms P-R-T Axes : 81 36 55 degrees QTcB Int : 426 ms Normal sinus rhythm with sinus arrhythmia Normal ECG When compared with ECG of 09-Nov-2023 05:24, No significant change was found Confirmed by Zaire Cotton ([id number]) on 11/10/2023 10:04:26 AM Referred By: REFERRED SELF Confirmed By: Zaire Cotton
--- NOTE | 2023-11-10 10:48 | Cardiology Progress Note ---
Date of Service November 10, 2023 Assessment & Plan (1) Hypertensive urgency: (2) Palpitations: (3) AIVR (accelerated idioventricular rhythm): Plan 11/09/23: Patient admitted for palpitations and hypertensive urgency. EKG demonstrated NSR without acute ischemic changes x2. HS troponin negative x4 since admission. Echocardiogram pending. Chest CTA and venous duplex unremarkable. He was treated with IV labetalol on arrival. home dose of atenolol 50 and lisinopril 40 mg continued. BP remains high after AM meds today. Transition atenolol to carvedilol 12.5 mg BID - first dose tonight as he already received morning atenolol. Continue lisinopril 40 mg Add Amlodipine 2.5 mg daily now given uncontrolled HTN. Patient had idioventricular escape rhythm in ER yesterday, correlating with symptoms. Strip discussed with EP. Typically not concerning. Hydration encouraged and currently receiving IV fluids. Improved morning labs. Electrolytes within normal limits. Continue ASA, statin, BB Given recent symptoms of dyspnea, b/l arm heaviness as outpatient, would recomme nd ischemic work up once his BP has improved. Will make NPO after midnight and consider stress echo in AM if BP improves. Would also recheck lipase as this was elevated yesterday on arrival. 11/10/23: Patient doing well this morning. BP trending down overnight. He received morning meds. Nurse to recheck BP in a bit and likely to be discharged today. Carvedilol initiated at 12.[address] of atenolol. Continue lisinopril 40 mg Amlodipine added. Echo with preserved EF. No wall motion abnormalities Continue ASA. He apparently has not been taking statin. Likely needs to resume, but will not initiate at present in effort to prioritize blood pressure medication. Intermittent idioventricular rhythm noted overnight. No concerning tachyarrhythmias. Continue carvedilol. Given recent events, HTN, PVC's, cardiac risk factors, will recommend outpatient nuclear Lexiscan stress test. Will be arranged. Anticipate discharge later today. Case discussed with Dr. Martin I spent a total of 30 minutes on the date of service in preparation, delivery, and documentation of the care provided to this patient, excluding any time spent in the performance of separately billed services. Akiko Thomason PA-C Department of Cardiology, [facility] This chart was completed in part utilizing Speech Voice Recognition Software. Grammatical errors, random word insertions, pronoun errors, and incomplete sentences are an occasional consequence of this system due to software limitations, ambient noise, and hardware issues. Any formal questions or concerns about the content, text, or information contained within the body of this dictation should be directly addressed to the provider for clarification. Admission and Anticipated Discharge Date Admission Date: November 08, 2023 Supervising Physician Co-Signing Physician Notes Attending attestation: Case reviewed with the advanced practitioner. I have personally performed a history and physical examination on the patient. I have reviewed the advanced practitioner's documentation on the date of service referenced in note, and I agree with, and take responsibility for the plan of care. I spent a total of 25 minutes coordinating, documenting, and providing care for this patient excluding time spent in the performance of separately billed services or time spent by another provider. Berto Martin, DO Subjective Patient resting in bed. Feeling well. Denies acute cardiac complaints. No chest pain or dyspnea. Palpitations improved. No events overnight. BP trending down. Received morning meds. Awaiting repeat BP check Review of Systems Review of Systems: All systems reviewed & are unremarkable except as noted in HPI & below Physical Exam Constitutional: WD/WN, vitals as above well nourished and average body habitus; no acute distress Neck: trachea midline, no thyromegaly Respiratory: normal respiratory effort; no labored breathing Auscultation: lungs clear to auscultation bilaterally Cardiovascular: Rate/Rhythm: regular rate and regular rhythm Heart Sounds: normal S1 and normal S2; no murmur Vessels: no JVD Extremities: no edema Gastrointestinal (Abdomen): normal bowel sounds, soft, nontender, no hep atosplenomegaly Musculoskeletal: no cyanosis or clubbing, extremities motor strength 5/5 Skin: no rashes, warm and dry Neurologic: PERRL, EOMI, accommodation nl, no face palsy, no dysarthria Results & Data Vital Signs (Past 12 Hours) Vital Signs Temp Pulse Pulse Resp BP Pulse Ox O2 Del Method 11/10/23 07:36 36.9 C 61 19 156/66 H 97 Room Air 11/10/23 07:00 69 11/10/23 02:54 36.6 C 70 14 121/76 96 Room Air 11/09/23 22:56 36.8 C 77 14 153/75 H 97 Room Air 11/09/23 22:51 71 Laboratory Results Cardiac Enzymes 11/09/23 Range/Units 11:01 Troponin I High Sens 4.9 (0-20) pg/ml CBC 11/10/23 Range/Units 06:55 WBC 7.08 (4.8-10.8) K/ul RBC 5.65 (4.70-6.10) M/uL Hgb 16.7 (14.0-18.0) g/dl Hct 48.6 (42.0-52.0) % Plt Count 218 (130-400) K/uL Comprehensive Metabolic Panel 11/10/23 Range/Units 06:55 Sodium 138 (136-145) mmol/L Potassium 4.0 (3.5-5.1) mmol/L Chloride 108 H (98-107) mmol/L Carbon Dioxide 23 (21-32) mmol/L BUN 22 (6-23) mg/dl Creatinine 0.86 (0.6-1.4) mg/dl Glucose 107 H (70-99(Fasting)) mg/dl Calcium 9.4 (8.6-10.3) mg/dl Intake and Output 11/09/23 11/10/23 11/10/23 22:59 06:59 14:59 Intake Total 150 / 1674.64 150 / 1674.64 Balance 150 / 1674.64 150 / 1674.64 Intake: Oral 150 / 700 150 / 700 Other: # Unmeasured Voids 2 2 Weight 71.3 kg Weight Measurement Method Standing Scale Diagnostic Findings telemetry reviewed: NSR with occ PVC. He has had several more episodes of accelerated idioventricular rhythm during sleep lasting 3-5 beats. No sustained arrhythmias or tachyarrhythmias. Echo report reviewed from yesterday 11/09/23: Summary transthoracic echocardiogram performed today 11/09/2023: The study was technically adequate. There is normal left ventricular wall thickness. The left ventricular wall motion is normal. Left ventricular systolic function is normal. The calculated left ventricular ejection fraction=61% (modified biplane). The right ventricle is normal in size and function. Aortic valve sclerosis mild, without significant aortic valvular stenosis. Grade I diastolic dysfunction, (abnormal relaxation pattern). Medications Administered Current Inpatient Medications Acetaminophen (Acetaminophen 325 Mg Tab) 650 mg PO Q4H PRN PRN Reason: Pain or Fever Stop: 12/08/23 23:39 Amlodipine Besylate (Amlodipine Besylate 5 Mg Tab) 2.5 mg PO QAM [facility] Stop: 12/09/23 11:29 Last Admin: 11/10/23 09:00 Dose: 2.5 mg Aspirin (Aspirin 81 Mg Ectab) 81 mg PO DAILY [facility] Stop: 12/09/23 08:59 Last Admin: 11/10/23 09:01 Dose: 81 mg Carvedilol (Carvedilol 12.5 Mg Tab) 12.5 mg PO BID [facility] Stop: 12/09/23 20:59 Last Admin: 11/10/23 09:02 Dose: 12.5 mg Dextrose (Dextrose 50% 50 Ml Syringe) 25 - 50 ml IV UD PRN; Protocol PRN Reason: Hypoglycemia Protocol Stop: 12/08/23 23:39 Duloxetine HCl (Duloxetine Hcl 30 Mg Cap) 30 mg PO DAILY [facility] Stop: 12/09/23 08:59 Last Admin: 11/10/23 09:02 Dose: 30 mg Gabapentin (Gabapentin 300 Mg Cap) 300 mg PO TID [facility] Stop: 12/09/23 08:59 Last Admin: 11/10/23 09:03 Dose: 300 mg Glucagon (Glucagon For Inj 1 Mg Vial) 1 mg SQ UD PRN; Protocol PRN Reason: Hypoglycemia Protocol Stop: 12/08/23 23:39 Glucose (Glucose 40% Gel 15 Gm Tube) 15 - 30 gm PO UD PRN; Protocol PRN Reason: Hypoglycemia Protocol Stop: 12/08/23 23:39 Glucose (Glucose 10 Tab/Tube) 4 - 8 tab PO UD PRN; Protocol PRN Reason: Hypoglycemia Treatment Stop: 12/08/23 23:39 Insulin Aspart (Insulin Aspart Per Unit Charge) 0 units SC ACHS [facility] Stop: 12/09/23 00:00 Last Admin: 11/10/23 08:59 Dose: Not Given Insulin Glargine (Lantus Per Unit Charge) 25 units SQ HS [facility] Stop: 12/08/23 23:39 Last Admin: 11/09/23 20:41 Dose: 25 units Labetalol HCl (Labetalol Hcl Iv 5 Mg/Ml 20ml) 10 mg IV Q4H PRN PRN Reason: Hypertension Stop: 12/08/23 23:39 Lisinopril (Lisinopril 40 Mg Tab) 40 mg PO DAILY [facility] Stop: 12/09/23 08:59 Last Admin: 11/10/23 09:03 Dose: 40 mg Miscellaneous (Order Awaiting Action: Fenofibrate Micronized 200 Mg Capsule) 1 each N/A QS [facility] Stop: 12/09/23 07:59 Last Admin: 11/10/23 09:00 Dose: Not Given Miscellaneous (Carbohydrates For Hypoglycemia ) 15 - 30 gm PO UD PRN PRN Reason: Hypoglycemia Protocol Stop: 12/08/23 23:39 Nitroglycerin (Nitroglycerin Sl 0.4 Mg/Tab Tab) 0.4 mg SL Q5M PRN PRN Reason: Chest Pain Stop: 12/08/23 23:39 Polyethylene Glycol (Polyethylene (Miralax) 17 Gm Pack) 17 gm PO DAILY PRN PRN Reason: Constipation Stop: 12/08/23 23:39
[2023-11-10 11:00] VITALS: PULSE 72; TEMP 98.8
--- NOTE | 2023-11-10 11:16 | Hospitalist Progress Note ---
Date of Service November 10, 2023 Assessment & Plan (1) Hypertensive urgency: Plan: 62-year-old male with past medical history significant for uncontrolled diabetes, diabetic retinopathy, hyperlipidemia, hypertension, gastroparesis, history of tobacco use, depression with anxious mood, history of prostate cancer presents with palpitations and hypertensive urgency. Since yesterday he noticed having palpitations and also his blood pressure is running high. His blood pressure was in 170s. Denies headache. No dizziness. Vision is okay. No sore throat or cough. No fevers. No chest pain or shortness of breath. Had some nausea yesterday. No abdominal pain. Normal bowel and bladder movements. Resting comfortably. Patient had a brief run of wide-complex rhythm in the ER. Hypertensive urgency --ECHO: Normal left ventricular wall thickness. Left ventricular wall motion is normal. Left ventricle systolic function is normal. EF 61%. Right ventricle is normal in size and function. Aortic valve sclerosis mild, without significant aortic valvular stenosis. Grade 1 diastolic dysfunction. -Continue lisinopril 40 mg daily Atenolol changed to Coreg 12.5 mg twice a day Started on amlodipine 2.5 mg daily Monitor BP and adjust medications as able Appreciate cardiology input Likely discharge home today Palpitations Brief accelerated junctional rhythm Occasional PVCs Atenolol changed to Coreg Appreciate cardiology input Monitor Continue current medications Elevated D-dimer --CTA:Normal chest CTA. No pulmonary embolism. --Venous Doppler:Currently there is normal compressibility of the deep venous system from the common femoral vein through the proximal calf veins. No superficial venous thrombosis is identified. DM II HbA1c 8.4 Hold metformin and Jardiance Continue insulin while hospitalized Monitor BGs Adjust insulin dose as needed Hyperlipidemia Lipid panel from 08/02/2023 showed elevated total cholesterol, LDL Currently on Fenofibrate Previously on statin May need to be restarted on statin as outpatient Depression with anxious mood Continue Duloxetine H/O Prostate cancer Status post radical prostate removal in 2014 DVT Px: SCDs for now Code Status Full code Disposition Home Admission and Anticipated Discharge Date Admission Date: November 08, 2023 Subjective Patient is seen and examined at bedside States feeling well today Palpitations resolved Family at bedside Eager to get discharged home today Blood pressure better today Denies any chest pain, dyspnea, nausea, vomiting, abdominal pain Review of Systems Review of Systems: All systems reviewed & are unremarkable except as noted in Subjective Physical Exam Physical Exam: Physical Exam: Vitals signs as noted above General Appearance:Moderately built and nourished, no apparent distress Head: normocephalic, Atraumatic Eyes: normal inspection, EOMI Neck: supple, Trachea midline Respiratory/Chest: Normal breath sounds, CTA, No accessory muscle use Cardiovascular: S1, S2, No murmur Abdomen/GI:Soft, Non tender, Bowel sounds present Extremities/Musculoskeletal:normal inspection, no edema Neurologic/Psych:AAOX3, grossly no focal neurological deficits Skin: normal color, warm Results & Data Results & Data Vital Signs (Past 12 Hours) Vital Signs Temp Pulse Pulse Resp BP BP Pulse Ox 11/10/23 10:59 37.1 C 72 19 150/74 H 97 11/10/23 07:36 36.9 C 61 19 156/66 H 97 11/10/23 07:00 69 11/10/23 02:54 36.6 C 70 14 121/76 96 O2 Del Method 11/10/23 10:59 Room Air 11/10/23 07:36 Room Air 11/10/23 07:00 11/10/23 02:54 Room Air Laboratory Results Short CBC 11/10/23 Range/Units 06:55 WBC 7.08 (4.8-10.8) K/ul Hgb 16.7 (14.0-18.0) g/dl Hct 48.6 (42.0-52.0) % Plt Count 218 (130-400) K/uL BMP 11/10/23 06:55 Sodium 138 Potassium 4.0 Chloride 108 H Carbon Dioxide 23 BUN 22 Creatinine 0.86 Glucose 107 H Calcium 9.4
--- NOTE | 2023-11-10 12:56 | Discharge Summary ---
Date of Service November 10, 2023 Admission HPI Per Admitting Provider 62-year-old male with past medical history significant for uncontrolled diabetes, diabetic retinopathy, hyperlipidemia, hypertension, gastroparesis, history of tobacco use, depression with anxious mood, history of prostate cancer presents with palpitations and hypertensive urgency. Since yesterday he noticed having palpitations and also his blood pressure is running high. His blood pressure was in 170s. Denies headache. No dizziness. Vision is okay. No sore throat or cough. No fevers. No chest pain or shortness of breath. Had some nausea yesterday. No abdominal pain. Normal bowel and bladder movements. Resting comfortably. Patient had a brief run of wide-complex rhythm in the ER. Past medical history. As mentioned above Past surgical history. Colonoscopy. EGD. Radical prostate removal. Social history. . Quit smoking in 2007. Smoked 1 pack a day for 35 years. Alcohol use. Smokes marijuana as per [employer]. Family history. Father had alcoholism. Father had prostate cancer. Mother had lung cancer. Diabetes. Heart disorder. Thyroid disorder. Brother had Crohn's disease. Brother had diabetes. Admission Exam Per Admitting Provider General- Not in distress Head- atraumatic Eyes- PERRL. ENT- oropharynx clear Neck- supple, no JVD. Lungs- clear to auscultation no wheezing or crackles Heart- regular rhythm; no murmur, no gallop. Abdomen- normal bowel sounds, soft, nontender, no distension. Extremities- no pretibial edema, no erythema seen Neuro- alert, oriented PERRL, o facial palsy; no dysarthria; moves extremities Principal Diagnosis Hypertensive urgency Accelerated idioventricular rhythm Discharge Data Allergies Allergy/AdvReac Type Severity Reaction Status Date / Time semaglutide [From Ozempic] AdvReac Intermediate ABD Verified 11/08/23 17:50 PAIN/NAUSEA Consultations 11/08/23 19:29 ED Decision to Admit Stat 11/09/23 08:00 Consult Cardiology Routine Procedures Performed Laboratory Results WBC 7.08 K/ul (4.8-10.8) 11/10/23 06:55 RBC 5.65 M/uL (4.70-6.10) 11/10/23 06:55 Hgb 16.7 g/dl (14.0-18.0) 11/10/23 06:55 POC Hgb 18.4 g/dl (14.0-18.0) H 11/08/23 17:51 Hct 48.6 % (42.0-52.0) 11/10/23 06:55 POC Hct 54 % (42-52) H 11/08/23 17:51 MCV 86.0 fL (80.0-100.0) 11/10/23 06:55 MCH 29.6 pg (25.0-34.0) 11/10/23 06:55 MCHC 34.4 g/dL (32.0-36.0) 11/10/23 06:55 RDW Std Deviation 39.8 fL (36.4-46.3) 11/10/23 06:55 RDW Coeff of Danna 12.8 % (11.5-14.5) 11/10/23 06:55 Plt Count 218 K/uL (130-400) 11/10/23 06:55 MPV 10.2 fL (9.4-12.4) 11/10/23 06:55 Immature Gran % (Auto) 0.6 % 11/09/23 05:19 Neut % (Auto) 70.9 % 11/09/23 05:19 Lymph % (Auto) 18.3 % 11/09/23 05:19 [place] % (Auto) 6.9 % 11/09/23 05:19 Eos % (Auto) 2.6 % 11/09/23 05:19 Baso % (Auto) 0.7 % 11/09/23 05:19 Neut # (Auto) 7.62 K/uL (1.40-6.50) H 11/09/23 05:19 Lymph # (Auto) 1.97 K/uL (1.20-3.40) 11/09/23 05:19 Summit # (Auto) 0.74 K/uL (0.11-0.59) H 11/09/23 05:19 Eos # (Auto) 0.28 K/uL (0.00-0.50) 11/09/23 05:19 Baso # (Auto) 0.07 K/uL (0.00-0.20) 11/09/23 05:19 Immature Gran # (Auto) 0.06 K/uL (0.01-0.20) 11/09/23 05:19 PT 10.3 Seconds (9.0-12.0) 11/08/23 17:49 INR 0.9 (0.9-1.1) 11/08/23 17:49 APTT 27 Seconds (21-31) 11/08/23 17:49 PTT Ratio 1.0 11/08/23 17:49 D-Dimer 590 ug/L FEU (0-500) H* 11/08/23 17:49 POC Sodium 140 mmol/L (135-144) 11/08/23 17:51 Sodium 138 mmol/L (136-145) 11/10/23 06:55 POC Potassium 4.1 mmol/L (3.3-5.0) 11/08/23 17:51 Potassium 4.0 mmol/L (3.5-5.1) 11/10/23 06:55 POC Chloride 106 mmol/L (101-112) 11/08/23 17:51 Chloride 108 mmol/L (98-107) H 11/10/23 06:55 Carbon Dioxide 23 mmol/L (21-32) 11/10/23 06:55 POC Total CO2 23 mmol/L (24-31) L 11/08/23 17:51 Anion Gap 7 (3-11) 11/10/23 06:55 POC Anion Gap 16.0 mmol/L (16-25) 11/08/23 17:51 POC BUN 23 mg/dl (7-18) H 11/08/23 17:51 BUN 22 mg/dl (6-23) 11/10/23 06:55 Creatinine 0.86 mg/dl (0.6-1.4) 11/10/23 06:55 POC Creatinine 1.1 mg/dl (0.6-1.3) 11/08/23 17:51 Est Cr Clr Drug Dosing 81.4 ml/min 11/10/23 06:55 Est GFR ( Amer) 108.5 ml/min 11/10/23 06:55 Est GFR (Non-Af Amer) 93.6 ml/min 11/10/23 06:55 BUN/Creatinine Ratio 25.6 (10-20) H 11/10/23 06:55 Glucose 107 mg/dl (70-99(Fasting)) H 11/10/23 06:55 POC Glucose 174 mg/dl (70-99) H 11/10/23 11:00 POC Glucose (other) 131 mg/dl (70-99) H 11/08/23 17:51 Estimat Average Glucose 194 mg/dl 11/09/23 05:19 Hemoglobin A1c 8.4 % (4.5-5.6) H 11/09/23 05:19 Calcium 9.4 mg/dl (8.6-10.3) 11/10/23 06:55 POC Ioniz Calcium Gurmeet 1.19 mmol/l (1.12-1.32) 11/08/23 17:51 Magnesium 2.2 mg/dl (1.7-2.4) 11/09/23 05:19 Total Bilirubin 0.5 mg/dl (0.2-1.0) 11/08/23 17:49 AST 19 U/L (13-39) 11/08/23 17:49 ALT 17 U/L (7-52) 11/08/23 17:49 Alkaline Phosphatase 42 U/L (34-104) 11/08/23 17:49 Troponin I High Sens 4.9 pg/ml (0-20) 11/09/23 11:01 Total Protein 7.8 gm/dl (6.0-8.3) 11/08/23 17:49 Albumin 4.9 gm/dl (3.4-5.0) 11/08/23 17:49 Globulin 2.9 gm/dl (2.5-4.0) 11/08/23 17:49 Albumin/Globulin Ratio 1.7 (0.9-2) 11/08/23 17:49 Lipase 106 U/L (11-82) H 11/08/23 17:49 TSH 1.542 uIu/ml (0.300-4.500) 11/08/23 17:49 Lyme Disease Screen Negative (Negative) 11/08/23 17:49 Impressions Chest X-Ray 11/08/23 17:50 SINGLE VIEW CHEST CLINICAL HISTORY: Atypical chest pain FINDINGS: An AP, portable, upright chest radiograph is compared to study dated 09/30/2014. The heart is mildly enlarged noting atherosclerotic calcification of the thoracic aorta. The pulmonary vasculature is noncongested. Nonspecific interstitial thickening is likely chronic. The lungs and pleural spaces are clear. No pneumothorax is seen. The skeletal structures appear osteopenic. The bony thorax is grossly intact. IMPRESSION: No acute cardiopulmonary abnormality is identified. ACT 112: Negative or not required by law. Electronically signed by: Irving Eid M.D. 11/08/2023 6:40 PM Chest CTA 11/08/23 18:54 Exam(s): CTA CHEST IV Amt: 117 ml optiray 320 EXAM: CT Angiography Chest With Intravenous Contrast CLINICAL HISTORY: Reason for exam: PE. TECHNIQUE: Axial computed tomographic angiography images of the chest with intravenous contrast. CTDI is 32 mGy and DLP is 723.58 mGy-cm. Automated exposure control was utilized for the study. A dose lowering technique was utilized adhering to the principles of ALARA. MIP reconstructed images were created and reviewed. COMPARISON: No relevant prior studies available. FINDINGS: Pulmonary arteries: Unremarkable. No pulmonary embolism. Aorta: No acute findings. No thoracic aortic aneurysm. Lungs: Unremarkable. No mass. No consolidation. Pleural space: Unremarkable. No significant effusion. No pneumothorax. Heart: Unremarkable. No cardiomegaly. No significant pericardial effusion. No evidence of RV dysfunction. Bones/joints: No acute fracture. No dislocation. Soft tissues: Unremarkable. Lymph nodes: Unremarkable. No enlarged lymph nodes. IMPRESSION: Normal chest CTA. No pulmonary embolism. Electronically signed by: Jordan Johnson MD 11/08/23 20:28 PM Venous Doppler Study 11/09/23 07:56 US venous doppler LE BI CLINICAL HISTORY: Elevated D dimer, R/O DVT TECHNIQUE: Bilateral lower extremity real-time compression venous ultrasound with Color Doppler imaging. Utilizing real-time ultrasonic imaging multiple real time high-resolution ultrasonic images with compression and noncompression maneuvers of the deep venous system in addition to color doppler imaging were performed from the common femoral vein through the proximal calf veins. COMPARISON: None available at the time of this dictation. FINDINGS/IMPRESSION: Currently there is normal compressibility of the deep venous system from the common femoral vein through the proximal calf veins. No superficial venous thrombosis is identified. ACT 112: Negative or not required by law. Electronically signed by: Chris Cantu M.D. 11/09/2023 10:40 AM Ordered Studies 11/08/23 18:54 CT angio chest PE protocol Stat 11/09/23 07:56 US venous doppler LE BI Routine Hospital Course (1) Hypertensive urgency: 62-year-old male with past medical history significant for uncontrolled diabetes, diabetic retinopathy, hyperlipidemia, hypertension, gastroparesis, history of tobacco use, depression with anxious mood, history of prostate cancer presents with palpitations and hypertensive urgency. Since yesterday he noticed having palpitations and also his blood pressure is running high. His blood pressure was in 170s. Denies headache. No dizziness. Vision is okay. No sore throat or cough. No fevers. No chest pain or shortness of breath. Had some nausea yesterday. No abdominal pain. Normal bowel and bladder movements. Re sting comfortably. Patient had a brief run of wide-complex rhythm in the ER. Hypertensive urgency --ECHO: Normal left ventricular wall thickness. Left ventricular wall motion is normal. Left ventricle systolic function is normal. EF 61%. Right ventricle is normal in size and function. Aortic valve sclerosis mild, without significant aortic valvular stenosis. Grade 1 diastolic dysfunction. -Continue lisinopril 40 mg daily Atenolol changed to Coreg 12.5 mg twice a day Started on amlodipine 2.5 mg daily Monitor BP and adjust medications as able Appreciate cardiology input Likely discharge home today Palpitations Brief accelerated junctional rhythm Occasional PVCs Atenolol changed to Coreg Appreciate cardiology input Monitor Continue current medications Elevated D-dimer --CTA:Normal chest CTA. No pulmonary embolism. --Venous Doppler:Currently there is normal compressibility of the deep venous system from the common femoral vein through the proximal calf veins. No superficial venous thrombosis is identified. DM II HbA1c 8.4 Hold metformin and Jardiance Continue insulin while hospitalized Monitor BGs Adjust insulin dose as needed Hyperlipidemia Lipid panel from 08/02/2023 showed elevated total cholesterol, LDL Currently on Fenofibrate Previously on statin May need to be restarted on statin as outpatient Depression with anxious mood Continue Duloxetine H/O Prostate cancer Status post radical prostate removal in 2014 DVT Px: SCDs for now Code Status Full code Disposition Home Total Time Total Time Spent Total Time Spent (In Minutes): 56 minutes Discharge Plan Discharge Items Patient Disposition: Home - Self-Care Reason For Visit: HTN URGENCY, PALPATIONS Discharge Diagnosis: Hypertensive urgency Accelerated idioventricular rhythm Activity: Per Instructions section Exercise/Sports: Gradually increase as tolerated Non-emergency contact: Primary Care Provider and Urology Physician Call non-emergency contact if: you have any medication questions, your symptoms worsen, your pain is concerning for you and you have a fever Follow-up/Referrals: Katherine Love, [Primary Care Provider] - (Date & Time 11/17/2023 10:20 AM Provider Annie Barrett PA-C Department Family Medicine [facility] ) Diet: Carb Consistent or DM2 and Heart Healthy Addtl Attending Provider Instructions: Follow-up with your primary care physician on 11/17/2023 10:20 AM Follow-up with your electroencephalographic technician Dr. Martin/Akiko Thomason PA-C as recommended -- Monitor blood pressure regularly at home as advised. Discussed with a physician for further adjustment of medications as needed. Seek immediate medical attention if your symptoms reoccur or worsen Please take all medications as instructed on discharge list below. Please call if you have any questions or problems. You can reach a [facility] hospitalist on duty at [facility] 24 hours a day by calling [phone] Pending Studies at Discharge: No Stand-Alone Forms: My [facility], Smoking Cessation Medications and DC Order Prescriptions: New amlodipine 2.5 mg tablet 2.5 mg PO QAM Qty: 30 1RF carvedilol 12.5 mg Tablet 12.5 mg PO BID Qty: 60 1RF Continued insulin glargine [Lantus Solostar U-100 Insulin] 100 unit/mL (3 mL) insulin pen 50 unit subcut HS aspirin 81 mg tablet,delayed release (DR/EC) 81 mg PO DAILY glipizide 10 mg tablet extended release 24hr 10 mg PO DAILYBB fenofibrate micronized 200 mg capsule 200 mg PO DAILYBB gabapentin 300 mg capsule 300 mg PO TID lisinopril 40 mg tablet 40 mg PO DAILY metformin 500 mg tablet extended release 24 hr 500 mg PO DAILY duloxetine 30 mg capsule,delayed release(DR/EC) 30 mg PO DAILY Rx Instructions: DO NOT CUT, CRUSH, OR CHEW Jardiance 25 mg tablet 25 mg PO DAILY Discontinued atenolol 50 mg tablet 50 mg PO DAILY meloxicam 15 mg tablet 15 mg PO DAILY PRN (Reason: Pain) Discharge Orders: Discharge Order (Routine); Ordered 11/10/23 Ordered By: Jacob Collins Admission Data Admit Date/Time: 08/07/24 22:00 Attending Provider: Jacob Collins Admit Provider: Sreekanth Patel Primary Care Provider: Katherine oLve Other Providers: Sreekanth Patel; Berto Martin
[2023-11-10 13:29] VITALS: BP 156/66
== END 2023-11-10 14:35 | disposition home or self-care (01) | DRG 305 ==
LOC: ED 17:32 → SUATTDRO 20:00 → 2S 20:00